=== PATIENT | male | born 1995 | race Caucasian/White ===

== ENCOUNTER 2019-05-09 17:43 | Inpatient (IN) ==
[2019-05-09] MEDS ORDERED: ONDANSETRON INJ 2 MG/ML 2 ML VIAL IV STA ×2 (18:05→19:57)
[2019-05-09] MEDS ORDERED: SODIUM CHLORIDE 0.9% 1000ML 1,000 ML IV SCH (18:15)
--- NOTE | 2019-05-09 19:30 | Emergency Department Note ---
Entered by Pablo Berger acting as a scribe for Reyes Hester MD History of Present Illness General Chief complaint: Referred by Doctor Stated complaint: WHITE BLOOD COUNT HIGH, NEEDS CT Time Seen by Provider: 05/09/19 17:54 Source: patient History of Present Illness Onset (ago): day(s) (few) Location: abdomen (lower), left and right Pain Consistency: + constant Maximum Pain Intensity: 5 Current Pain Intensity: 5 Associated symptoms: + denies other symptoms (sore throat, congestion), + fever/chills and + other (mild pain with urination, constipation); no cough The patient is a 23 y/o male who presents to the ED w/ CC of constant discomfort to his bilateral lower abdomen beginning a few days ago. The patient states he had his appendix out on the . He reports since the surgery, he felt sore. The patient notes he felt better on Monday and [place] He states he had a slight fever of 101.2 degrees F and chills after going to the movies. The patient reports he has had a low-grade fever since, and he has having trouble with constipation and pain. He notes he is still able to urinate but today he developed mild pain with urination. The patient states he still has abdominal discomfort that he rates a 5/10 in severity. He reports it does not increase with movement, and he has mild groin pain. The patient notes when moving his bowels, he has extreme pain in his rectum. He rates this discomfort an 8/10 in severity. The patient denies a sore throat, cough, and congestion. He notes he last had pain medication, Tylenol, a few hours ago. Review of EMR: The patient was evaluated in the ED on May 02 and diagnosed with appendicitis. He had an appendectomy performed by Dr. Roberto. The patient was evaluated by the surgeon today and was not feeling well. The surgeon was concerned because he should be feeling better. Lab work revealed: WBC of 16, hemoglobin was 14, creatinine of .95, bilirubin elevation of 4.2, and the remainder of LFTs were normal. He was sent to the ED for a CT of the abdomen. Home Medications Home Medications Medication Instructions Recorded Confirmed Type calcium carbonate [Tums] 200 mg PO UD 05/02/19 05/09/19 History dextroamphetamine-amphetamine 10 mg PO QAM 05/02/19 05/09/19 History gemfibrozil 600 mg PO BID 05/02/19 05/09/19 History acetaminophen [Tylenol Arthritis 650 mg PO TID PRN 05/09/19 05/09/19 History Pain] Allergies Allergy/AdvReac Type Severity Reaction Status Date / Time No Known Allergies Allergy Unverified 05/09/19 14:37 Past Med/Surg History Medical History Fatty liver disease, nonalcoholic Surgical History History of liver biopsy 2013 No significant past surgical history S/P appendectomy (05/02/19) Laparoscopic Appendectomy Dr. Roberto 05/02/19 Family History Father Diabetes Hypertension Grandfather (Paternal) Cancer Grandmother (Paternal) Heart disease Social History Preferred Language: Somali marital status: Single current occupational status: student Feels Safe at Home: Yes Smoking Status: Never smoker Hx Alcohol Use: No Hx Substance Use: No Review of Systems See HPI for pertinent positives & negatives. and A total of 10 systems reviewed and were otherwise negative Physical Exam Vital Signs Vital Signs - 24 hr 05/09/19 17:46 05/09/19 19:28 05/09/19 21:44 Temperature 37.3 C 37.2 C Temperature Source Oral Oral Sepsis Recent Fever Within 48 Hours No Sepsis New/Unexplained Change in Mental Status No Sepsis Action Taken by Nursing No Action Required Pulse Rate 104 H Pulse Rate [Finger] 94 H 84 Pulse Rhythm Regular Pulse Strength Normal Respiratory Rate 20 18 18 Respiratory Effort / Characteristics Non-Labored Spontaneous Respiratory Depth Normal Respiratory Pattern Regular Blood Pressure 102/68 Blood Pressure [Right Arm] 114/68 108/68 Blood Pressure Mean 79 Blood Pressure Mean [Right Arm] 83 81 Blood Pressure Position Sitting Pulse Oximetry 96 98 98 Oxygen Delivery Method Room Air Room Air Room Air GENERAL: Patient is in no acute distress. HEENT: No acute trauma, normocephalic atraumatic, mucous membranes moist, no nasal congestion, no scleral icterus. NECK: No stridor, no adenopathy, no meningismus, trachea is midline. LUNGS: Clear to auscultation bilaterally, no wheeze, no rhonchi, breath sounds equal. HEART: Without murmurs gallops or rubs, regular rate and rhythm. ABDOMEN: Soft, moderately tender in the lower quadrants - especially the right, bowel sounds positive, no hernias, no peritonitis. RECTAL: No evidence for perirectal abscess. EXTREMITIES: No cyanosis or edema, full range of motion of all the joints without pain or difficulty, no signs for acute trauma. NEUROLOGIC: Oriented x 3, no acute motor or sensory deficits, no focal weakness. SKIN: No rash, no jaundice, no diaphoresis. Course 1758: Past medical records reviewed. The patient was evaluated in room C10. A complete history and physical exam was performed. 2128: I discussed the patient's case with Dr. Bruner, [facility]. He recommends the patient receives a dose of Zosyn. He will evaluate the patient for further management and care. 2138: Upon reevaluation, the patient is resting comfortably. I discussed laboratory and radiographic results with the patient and his family. They verbalized agreement of the treatment plan. The patient will be evaluated for further management and care. Administered Medications Piperacillin Sod/Tazobactam Sod (Zosyn) 4.5 gm in 120 mls @ 240 mls/hr IV NOW ONE Stop: 05/09/19 22:04 Last Admin: 05/09/19 21:41 Dose: 240 mls/hr Documented by: [id number] Ioversol (Optiray 320 100ml) 94 ml IV ONCE PRN PRN Reason: Interaction Checking Stop: 05/13/19 20:51 Last Admin: 05/09/19 20:53 Dose: 94 ml Documented by: [id number] Discontinued Medications Sodium Chloride (Nss 1000ml) 1,000 mls @ 999 mls/hr IV .Q1H1M NIGEL Stop: 05/09/19 19:15 Last Infusion: 05/09/19 19:58 Dose: 0 mls/hr Documented by: [id number] Admin: 05/09/19 18:55 Dose: 999 mls/hr Documented by: [id number] Promethazine HCl 6.25 mg/ (Sodium Chloride) 50.25 mls @ 201 mls/hr IV NOW STA Stop: 05/09/19 20:11 Last Admin: 05/09/19 20:03 Dose: Not Given Documented by: [id number] Ondansetron HCl (Zofran) 4 mg IV NOW STA Stop: 05/09/19 18:06 Last Admin: 05/09/19 18:55 Dose: 4 mg Documented by: [id number] Ondansetron HCl (Zofran) 4 mg IV NOW STA Stop: 05/09/19 19:58 Last Admin: 05/09/19 20:03 Dose: 4 mg Documented by: [id number] Promethazine HCl (Phenergan) Confirm Administered Dose 6.25 mg IV .coJuvo-Surgient ONE Stop: 05/09/19 20:00 Last Admin: 05/09/19 20:02 Dose: 6.25 mg Documented by: [id number] Medical Decision Making Differential Diagnosis Differential diagnosis includes: bowel leak, diverticulitis, intraabdominal abscess, dehydration, constipation, wound infection, UTI, viral illness Medical Records Attestation: I reviewed the patient's medical records. Home Medications Current Medication List: was personally reviewed by me Laboratory Data Attestation: I reviewed the patient's lab results. Lab Results 05/09/19 05/09/19 Range/Units 18:05 19:25 Lipase 47 L (73-393) U/L Urine Color [place] Urine Appearance Clear (Clear) Urine pH 6.0 (4.5-7.5) Ur Specific [place] 1.016 (1.000-1.030) Urine Protein 2+ H (Negative) Urine Glucose (UA) Negative (Negative) Urine Ketones Negative (Negative) Urine Blood Negative (Negative) Urine Nitrite Negative (Negative) Urine Bilirubin Negative (Negative) Urine Urobilinogen Negative (Negative) Ur Leukocyte Esterase Negative (Negative) Urine WBC (Auto) 1-5 (0-5) /hpf Urine RBC (Auto) 0-4 (0-4) /hpf U Hyaline Cast (Auto) 0 (0-5) /lpf U Epithel Cells (Auto) 10-20 H (0-5) /lpf Urine Bacteria (Auto) Negative (Negative) Imaging Data Radiologist's Impression: Radiology results as stated below per my review and the radiologist's interpretation: CT abd pelvis oral and IV con CLINICAL HISTORY: Abdominal pain and elevated white count. History of prior appendectomy 1 week ago. COMPARISON STUDY: 05/02/2019 TECHNIQUE: The patient was scanned following administration of dilute oral contrast, and in a dynamic helical fashion during intravenous administration of 94 cc of Optiray 320. A dose lowering technique was utilized adhering to the principles of ALARA. CT DOSE: 387.98 mGy.cm FINDINGS: Lower chest: There is trace left pleural fluid. There is a 2 mm left lower lobe pulmonary nodule, a finding of doubtful clinical significance given the patient's age Liver: There is hepatic steatosis. The portal and hepatic veins appear patent. No focal hepatic masses are visualized. Gallbladder: Unremarkable. Spleen: The spleen is minimally enlarged measuring 13.6 cm. Pancreas: Unremarkable. Adrenal glands: Unremarkable. Kidneys: There is symmetric renal cortical enhancement. The kidneys are normal in size without hydronephrosis. Bowel: There are no transition zones to indicate bowel obstruction. There is a 42 mm prerectal fluid collection suspicious for an abscess. There is a markedly thick walled terminal ileum. Posterior terminal ileum is a 4 cm fluid collections suspicious for an abscess. There is a third right lower quadrant abdominal fluid collection measuring 7 cm suspicious for additional abscess. There are dilated ileal loops, proximal to the markedly thickened terminal ileum consistent with a partial small bowel obstruction. There is also infiltration of the perisigmoid fat, likely secondary to generalized lower abdominal peritoneal inflammation. Peritoneum: Addition to the above-mentioned pelvic abscesses. There is a small amount of mesenteric fluid. No free intraperitoneal air is visualized Vasculature: The abdominal aorta is normal in course and caliber. Adenopathy: None. Pelvic viscera: The bladder, and pelvic viscera are unremarkable. Skeletal structures: There is bilateral L5 spondylolysis. There is a grade 1 spondylolisthesis of L5 and S1. IMPRESSION: 1. Extensive right lower quadrant inflammatory process with extensive edema involving the cecum and distal ileum. This results in a partial small bowel obstruction. 2. Multiple right lower quadrant and pelvic fluid collections measuring 7 cm, 4 cm, and 4 cm respectively. The findings are felt to represent multiple pelvic abscesses. 3. Infiltration of the. Sigmoid fat, finding which is felt to be secondary to generalized pelvic peritoneal inflammation 4. Hepatic steatosis Electronically signed by: Glynn Cantu M.D. 05/09/2019 9:19 PM Blood Pressure Blood Pressure Findings: Normal blood pressure Blood Pressure Disposition: did not require urgent referral MDM Narrative The patient had laboratory work done as an outpatient today. The white count was elevated at 16,000. The bilirubin was slightly high at 4. He has had a higher bilirubin value with previous testing. There is no anemia. No kidney f ailure or issue with his kidney function. A lipase was done here in the ED, this was normal. Urinalysis was done, there was no infection. An abdominal and pelvis CT was performed. The patient does have evidence for 3 different fluid collections in the pelvis, likely abscesses. A partial small bowel obstruction was suspected. I spoke with the on-call general surgeon. IV antibiotic's were felt warranted. The patient is going to be hospitalized. He may require a general surgical washout, he may require percutaneous intervention. This will be decided by the surgical group after talking with the patient and his family. Emergent transfer to a different facility was not felt necessary as per surgery. The patient was given IV Zosyn as antibiotic coverage. He received IV Zofran for nausea, a second dose of Zofran and a dose of Phenergan was given IV for persistent nausea. He was given IV saline for hydration. I spoke to the patient, I spoke with his family. Case management has been involved. Impression & Plan Intra-abdominal abscess, Leukocytosis, S/P appendectomy Discharge Plan Visit Data Chief Complaint: Referred by Doctor Stated Complaint: WHITE BLOOD COUNT HIGH, NEEDS CT ED Provider: Reyes Hester Discharge Problem: Intra-abdominal abscess, Leukocytosis, S/P appendectomy Patient Disposition: Being Evaluated by Surgeon Forms Stand Alone Forms: [facility] Prescriptions Prescriptions: No Action gemfibrozil 600 mg tablet 600 mg PO BID RF: 0 dextroamphetamine-amphetamine 10 mg capsule,extended release 24hr 10 mg PO QAM RF: 0 calcium carbonate [Tums] 200 mg calcium (500 mg) Tablet,Chewable 200 mg PO UD RF: 0 acetaminophen [Tylenol Arthritis Pain] 650 mg Tablet Extended Release 650 mg PO TID PRN (Reason: Pain) RF: 0 Referrals Referrals: Jess Hernandez [Primary Care Provider] - Discharge Problem: Leukocytosis Qualifiers: Leukocytosis type: unspecified Qualified Code(s): D72.829 - Elevated white blood cell count, unspecified The scribe's documentation has been prepared under my direction and personally reviewed by me in its entirety. I confirm that the note above accurately reflects all work, treatment, procedures, and medical decision making performed by me.
[2019-05-09 19:44] LABS: Appearance Urine Clear (Clear); Bacteria Urine Automated Negative (Negative); Bilirubin Urine Negative (Negative); Blood Urine Negative (Negative); Cast Urine Automated 0 /lpf (0-5); Color Urine Orange; Glucose Urine UA Negative (Negative); Ketones Urine Negative (Negative); Leukocyte Esterase Urine Negative (Negative); Nitrite Urine Negative (Negative); Protein Urine 2+ (Negative); RBC Urine Automated 0-4 /hpf (0-4); Specific Gravity Urine 1.016 (1.000-1.030); Urobilinogen Urine Negative (Negative)
[2019-05-09] MEDS ORDERED: PROMETHAZINE HCL 6.25 MG in SODIUM CHLORIDE 0.9% 50 ML IV STA (19:57)
[2019-05-09] MEDS ORDERED: PROMETHAZINE 6.25 MG/50.25 ML NSS IV ONE (19:59)
[2019-05-09] MEDS ORDERED: IOVERSOL 100ml IV PRN (20:52)
--- NOTE | 2019-05-09 21:21 | CT Scan Report ---
CT abd pelvis oral and IV con CLINICAL HISTORY: Abdominal pain and elevated white count. History of prior appendectomy 1 week ago. COMPARISON STUDY: 05/02/2019 TECHNIQUE: The patient was scanned following administration of dilute oral contrast, and in a dynamic helical fashion during intravenous administration of 94 cc of Optiray 320. A dose lowering techniqu e was utilized adhering to the principles of ALARA. CT DOSE: 387.98 mGy.cm FINDINGS: Lower chest: There is trace left pleural fluid. There is a 2 mm left lower lobe pulmonary nodule, a f inding of doubtful clinical significance given the patient's age Liver: There is hepatic steatosis. The portal and hepatic veins appear patent. No focal hepatic huber s are visualized. Gallbladder: Unremarkable. Spleen: The spleen is minimally enlarged measuring 13.6 cm. Pancreas: Unremarkable. Adrenal glands: Unremarkable. Kidneys: There is symmetric renal cortical enhancement. The kidneys are normal in size without hydron ephrosis. Bowel: There are no transition zones to indicate bowel obstruction. There is a 42 mm prerectal fluid collection suspicious for an abscess. There is a markedly thick walled terminal ileum. Posterior term inal ileum is a 4 cm fluid collections suspicious for an abscess. There is a third right lower quadra nt abdominal fluid collection measuring 7 cm suspicious for additional abscess. There are dilated ile al loops, proximal to the markedly thickened terminal ileum consistent with a partial small bowel obs truction. There is also infiltration of the perisigmoid fat, likely secondary to generalized lower ab dominal peritoneal inflammation. Peritoneum: Addition to the above-mentioned pelvic abscesses. There is a small amount of mesenteric f luid. No free intraperitoneal air is visualized Vasculature: The abdominal aorta is normal in course and caliber. Adenopathy: None. Pelvic viscera: The bladder, and pelvic viscera are unremarkable. Skeletal structures: There is bilateral L5 spondylolysis. There is a grade 1 spondylolisthesis of L5 and S1. IMPRESSION: 1. Extensive right lower quadrant inflammatory process with extensive edema involving the cecum and d istal ileum. This results in a partial small bowel obstruction. 2. Multiple right lower quadrant and pelvic fluid collections measuring 7 cm, 4 cm, and 4 cm respecti vely. The findings are felt to represent multiple pelvic abscesses. 3. Infiltration of the. Sigmoid fat, finding which is felt to be secondary to generalized pelvic analilia toneal inflammation 4. Hepatic steatosis Electronically signed by: Glynn Cantu M.D. 05/09/2019 9:19 PM
[2019-05-09] MEDS ORDERED: PIPERACILLIN/TAZOBACTAM 4.5 GM/120 ML BAG IV ONE (21:35)
[2019-05-09] MEDS ORDERED: PIPERACILL/TAZOBAC CONSULT ACTIVE PRN ×2 (21:35→23:48)
--- NOTE | 2019-05-09 22:54 | History & Physical Report ---
Date of Service May 09, 2019 Assessment & Plan (1) Intra-abdominal abscess: This patient is status post uncomplicated laparoscopic appendectomy 1 week ago. He has developed abdominal pain with elevated white count and low-grade fever and a CT scan consistent with abscess formation. Going to admit him to the hospital and place him on antibiotics. He will be kept n.p.o. Further decisions about management will be made in the morning. History of Present Illness Chief Complaint: Right lower quadrant and pelvic pain Primary Care Provider: Jess Hernandez This is a 23-year-old male who underwent an uncomplicated laparoscopic appendectomy on 05/02/19. Postoperative day #3 he developed some mild discomfort in the pelvis area. This was exacerbated during bowel movements. That night he then developed fever with a maximum of 100.2. He then had some chills. He went to be seen for follow-up today and a CT scan was recommended. He was found to have an inflammatory process with phlegmon in the right lower quadrant and evidence of 3 collections most likely consistent with abscess. The discomfort has increased slightly in intensity. He has no dysuria or hematuria. He has had no nausea or vomiting. He denies diarrhea. He has not had melena or hematochezia.His CBC was drawn as an outpatient and his white count was found to be 16.13 Allergies Allergy/AdvReac Type Severity Reaction Status Date / Time No Known Allergies Allergy Unverified 05/09/19 14:37 Home Medications Home Medications Medication Instructions Recorded Confirmed Type calcium carbonate [Tums] 200 mg PO UD 05/02/19 05/09/19 History dextroamphetamine-amphetamine 10 mg PO QAM 05/02/19 05/09/19 History gemfibrozil 600 mg PO BID 05/02/19 05/09/19 History acetaminophen [Tylenol Arthritis 650 mg PO TID PRN 05/09/19 05/09/19 History Pain] Past Med/Surg History Medical History Fatty liver disease, nonalcoholic Surgical History History of liver biopsy 2014 S/P appendectomy (05/02/19) Laparoscopic Appendectomy Dr. Roberto 05/02/19 Family History Father Diabetes Hypertension Grandfather (Paternal) Cancer Grandmother (Paternal) Heart disease Social History Preferred Language: Mohawk marital status: Single current occupational status: student Feels Safe at Home: Yes Smoking Status: Never smoker Hx Alcohol Use: No Hx Substance Use: No Review of Systems Review of Systems: All systems reviewed & are unremarkable except as noted in HPI & below Physical Exam Constitutional: no acute distress Neck: trachea midline Respiratory: normal respiratory effort, lungs clear to auscultation Cardiovascular: Rate/Rhythm: regular rate and regular rhythm Gastrointestinal (Abdomen): Inspection/Auscultation: + abdomen distended (Mild) Percussion/Palpation: + abdomen tender (In the right lower quadrant extending down towards the suprapubic area), abdomen soft and + abdominal mass (There is no discrete mass but there is fullness in the right lower quadrant) Skin: no rashes, warm and dry Lymphatic: no cervical lymphadenopathy and no subclavicular lymphadenopathy Results & Data Vital Signs (Past 12 Hours) Vital Signs Temp Pulse Pulse Resp BP BP Pulse Ox 05/09/19 21:44 37.2 C 84 18 108/68 98 05/09/19 19:28 94 H 18 114/68 98 05/09/19 17:46 37.3 C 104 H 20 102/68 96 Laboratory Results 05/09/19 05/09/19 Range/Units 19:25 18:05 Lipase 47 L (73-393) U/L Urine Color [place] Urine Appearance Clear (Clear) Urine pH 6.0 (4.5-7.5) Ur Specific [place] 1.016 (1.000-1.030) Urine Protein 2+ H (Negative) Urine Glucose (UA) Negative (Negative) Urine Ketones Negative (Negative) Urine Blood Negative (Negative) Urine Nitrite Negative (Negative) Urine Bilirubin Negative (Negative) Urine Urobilinogen Negative (Negative) Ur Leukocyte Esterase Negative (Negative) Urine WBC (Auto) 1-5 (0-5) /hpf Urine RBC (Auto) 0-4 (0-4) /hpf U Hyaline Cast (Auto) 0 (0-5) /lpf U Epithel Cells (Auto) 10-20 H (0-5) /lpf Urine Bacteria (Auto) Negative (Negative) Diagnostic Findings CT abd pelvis oral and IV con CLINICAL HISTORY: Abdominal pain and elevated white count. History of prior appendectomy 1 week ago. COMPARISON STUDY: 05/02/2019 TECHNIQUE: The patient was scanned following administration of dilute oral contrast, and in a dynamic helical fashion during intravenous administration of 94 cc of Optiray 320. A dose lowering technique was utilized adhering to the principles of ALARA. CT DOSE: 387.98 mGy.cm FINDINGS: Lower chest: There is trace left pleural fluid. There is a 2 mm left lower lobe pulmonary nodule, a finding of doubtful clinical significance given the patient's age Liver: There is hepatic steatosis. The portal and hepatic veins appear patent. No focal hepatic masses are visualized. Gallbladder: Unremarkable. Spleen: The spleen is minimally enlarged measuring 13.6 cm. Pancreas: Unremarkable. Adrenal glands: Unremarkable. Kidneys: There is symmetric renal cortical enhancement. The kidneys are normal in size without hydronephrosis. Bowel: There are no transition zones to indicate bowel obstruction. There is a 42 mm prerectal fluid collection suspicious for an abscess. There is a markedly thick walled terminal ileum. Posterior terminal ileum is a 4 cm fluid collections suspicious for an abscess. There is a third right lower quadrant abdominal fluid collection measuring 7 cm suspicious for additional abscess. There are dilated ileal loops, proximal to the markedly thickened terminal ileum consistent with a partial small bowel obstruction. There is also infiltration of the perisigmoid fat, likely secondary to generalized lower abdominal peritoneal inflammation. Peritoneum: Addition to the above-mentioned pelvic abscesses. There is a small amount of mesenteric fluid. No free intraperitoneal air is visualized Vasculature: The abdominal aorta is normal in course and caliber. Adenopathy: None. Pelvic viscera: The bladder, and pelvic viscera are unremarkable. Skeletal structures: There is bilateral L5 spondylolysis. There is a grade 1 spondylolisthesis of L5 and S1. IMPRESSION: 1. Extensive right lower quadrant inflammatory process with extensive edema involving the cecum and distal ileum. This results in a partial small bowel obstruction. 2. Multiple right lower quadrant and pelvic fluid collections measuring 7 cm, 4 cm, and 4 cm respectively. The findings are felt to represent multiple pelvic abscesses. 3. Infiltration of the. Sigmoid fat, finding which is felt to be secondary to generalized pelvic peritoneal inflammation 4. Hepatic steatosis
[2019-05-09] MEDS ORDERED: ONDANSETRON INJ 2 MG/ML 2 ML VIAL IV PRN (23:48)
[2019-05-10] MEDS ORDERED: MoRPHine SULFATE 2 MG/ML CARP ONE (00:16)
[2019-05-10] MEDS: SODIUM CHLORIDE 0.9% 1000ML 1,000 ML IV SCH ×3 (00:20→19:38)
[2019-05-10] MEDS: PIPERACILLIN/TAZOBACTAM 3.375 GM in DEXTROSE 5% 100 ML IV SCH ×3 (01:52→18:03)
[2019-05-10] MEDS ORDERED: INFLUENZA ADMINISTRATION CHARGE ONE (04:30)
[2019-05-10] MEDS ORDERED: INFLUENZA VIRUS QUAD VACCINE 0.5 ML SYR IM ONE (04:30)
--- NOTE | 2019-05-10 13:16 | Surgery Progress Note ---
Date of Service May 10, 2019 Assessment & Plan (1) Intra-abdominal abscess: 23-year-old male 1 week status post uncomplicated laparoscopic appendectomy now with intra-abdominal abscess. I discussed percutaneous drainage with our radiologist, and they unsure if they would be able to drain the abscesses. I also discussed options with the family to include laparoscopic washout and drainage, versus transfer to a tertiary center with more interventional radiology capabilities. We discussed the risks and benefits of each of these options. At this point the family elects for transfer to tertiary center. I discussed the care with Dr. Lina Llanos at [facility] and she is agreed to accept patient in transfer. Transfer to [facility], attending physician Dr. Lina Llanos for assessment and evaluation and percutaneous drainage of intra-abdominal abscesses Continue antibiotics Continue n.p.o., if patient is not going to be transferred tonight then he may have clear liquids I had a long discussion with the patient and his family. We discussed the diagnosis, treatment options, and plan of care. All questions were answered, and the family and the patient expressed understanding and agree with the plan of care as stated. Present on Admission?: Yes (2) S/P appendectomy: (3) Leukocytosis: Subjective 23-year-old male status post uncomplicated laparoscopic appendectomy on 02 May, admitted for intra-abdominal abscess. He was seen in the clinic yesterday and was complaining of fevers and chills along with some vague abdominal symptoms. CBC was performed and showed an elevated white blood cell count, and the patient was referred to the emergency department for further work-up and imaging. The CT scan revealed several fluid collections in the abdo men that were concerning for intra-abdominal abscesses. He was admitted to the surgical service by the on-call surgeon Dr. Bruner overnight and placed on antibiotics and made n.p.o. Overall he has been stable with minimal complaints. Physical Exam Constitutional: WD/WN, vitals as above Eyes: PERRL, conjunctivae normal, anicteric sclerae ENMT: external ear and nose normal, oropharynx normal Neck: trachea midline, no thyromegaly Respiratory: normal respiratory effort, lungs clear to auscultation Cardiovascular: RRR, no murmur, no edema Gastrointestinal (Abdomen): Percussion/Palpation: + abdomen tender (Moderate tenderness to palpation, worse in the right lower quadrant) and abdomen soft; no guarding and abdomen not rigid Musculoskeletal: no cyanosis or clubbing, extremities motor strength 5/5 Skin: no rashes, warm and dry Neurologic: PERRL, EOMI, accommodation nl, no face palsy, no dysarthria Psychiatric: A+Ox3, euthymic affect Lymphatic: no cervical or axillary lymphadenopathy Results & Data Vital Signs (Past 12 Hours) Vital Signs Temp Pulse Resp BP Pulse Ox 05/10/19 07:59 37.5 C 96 H 18 98/59 L 95 Laboratory Results Laboratory Results - last 24 hr 05/09/19 05/09/19 18:05 19:25 Lipase 47 L Urine Color [place] Urine Appearance Clear Urine pH 6.0 Ur Specific [place] 1.016 Urine Protein 2+ H Urine Glucose (UA) Negative Urine Ketones Negative Urine Blood Negative Urine Nitrite Negative Urine Bilirubin Negative Urine Urobilinogen Negative Ur Leukocyte Esterase Negative Urine WBC (Auto) 1-5 Urine RBC (Auto) 0-4 U Hyaline Cast (Auto) 0 U Epithel Cells (Auto) 10-20 H Urine Bacteria (Auto) Negative Diagnostic Findings CT abd pelvis oral and IV con CLINICAL HISTORY: Abdominal pain and elevated white count. History of prior appendectomy 1 week ago. COMPARISON STUDY: 05/02/2019 TECHNIQUE: The patient was scanned following administration of dilute oral contrast, and in a dynamic helical fashion during intravenous administration of 94 cc of Optiray 320. A dose lowering technique was utilized adhering to the principles of ALARA. CT DOSE: 387.98 mGy.cm FINDINGS: Lower chest: There is trace left pleural fluid. There is a 2 mm left lower lobe pulmonary nodule, a finding of doubtful clinical significance given the patient's age Liver: There is hepatic steatosis. The portal and hepatic veins appear patent. No focal hepatic masses are visualized. Gallbladder: Unremarkable. Spleen: The spleen is minimally enlarged measuring 13.6 cm. Pancreas: Unremarkable. Adrenal glands: Unremarkable. Kidneys: There is symmetric renal cortical enhancement. The kidneys are normal in size without hydronephrosis. Bowel: There are no transition zones to indicate bowel obstruction. There is a 42 mm prerectal fluid collection suspicious for an abscess. There is a markedly thick walled terminal ileum. Posterior terminal ileum is a 4 cm fluid collec tions suspicious for an abscess. There is a third right lower quadrant abdominal fluid collection measuring 7 cm suspicious for additional abscess. There are dilated ileal loops, proximal to the markedly thickened terminal ileum consistent with a partial small bowel obstruction. There is also infiltration of the perisigmoid fat, likely secondary to generalized lower abdominal peritoneal inflammation. Peritoneum: Addition to the above-mentioned pelvic abscesses. There is a small amount of mesenteric fluid. No free intraperitoneal air is visualized Vasculature: The abdominal aorta is normal in course and caliber. Adenopathy: None. Pelvic viscera: The bladder, and pelvic viscera are unremarkable. Skeletal structures: There is bilateral L5 spondylolysis. There is a grade 1 spondylolisthesis of L5 and S1. IMPRESSION: 1. Extensive right lower quadrant inflammatory process with extensive edema involving the cecum and distal ileum. This results in a partial small bowel obstruction. 2. Multiple right lower quadrant and pelvic fluid collections measuring 7 cm, 4 cm, and 4 cm respectively. The findings are felt to represent multiple pelvic abscesses. 3. Infiltration of the. Sigmoid fat, finding which is felt to be secondary to generalized pelvic peritoneal inflammation 4. Hepatic steatosis PG Care Time/CCT Total # of Minutes Spent Total Time Spent with Patient: Total time spent is greater than 50% in coordination of care (as documented) at patient's floor/unit and/or counseling patient: (1) Leukocytosis Leukocytosis type: unspecified Qualified Code(s): D72.829 - Elevated white blood cell count, unspecified
--- NOTE | 2019-05-10 13:23 | Discharge Summary ---
Date of Service May 10, 2019 Admission HPI Per Admitting Provider This is a 23-year-old male who underwent an uncomplicated laparoscopic appendectomy on 05/02/19. Postoperative day #3 he developed some mild discomfort in the pelvis area. This was exacerbated during bowel movements. That night he then developed fever with a maximum of 100.2. He then had some chills. He went to be seen for follow-up today and a CT scan was recommended. He was found to have an inflammatory process with phlegmon in the right lower quadrant and evidence of 3 collections most likely consistent with abscess. The discomfort has increased slightly in intensity. He has no dysuria or hematuria. He has had no nausea or vomiting. He denies diarrhea. He has not had melena or hematochezia.His CBC was drawn as an outpatient and his white count was found to be 16.13 Principal Diagnosis intra-abdominal abscesses history of laparoscopic appendectomy Discharge Exam Constitutional WD/WN, vitals as above no acute distress Eyes PERRL, conjunctivae normal, anicteric sclerae ENMT external ear and nose normal, oropharynx normal Neck trachea midline, no thyromegaly trachea midline Respiratory normal respiratory effort, lungs clear to auscultation Cardiovascular RRR, no murmur, no edema Rate/Rhythm: regular rate and regular rhythm Gastrointestinal (Abdomen) Inspection/Auscultation: + abdomen distended (Mild) Percussion/Palpation: + abdomen tender (Moderate tenderness to palpation, worse in the right lower quadrant), abdomen soft and + abdominal mass (There is no discrete mass but there is fullness in the right lower quadrant); no guarding and abdomen not rigid Musculoskeletal no cyanosis or clubbing, extremities motor strength 5/5 Skin no rashes, warm and dry Neurologic PERRL, EOMI, accommodation nl, no face palsy, no dysarthria Psychiatric A+Ox3, euthymic affect Lymphatic no cervical or axillary lymphadenopathy no cervical lymphadenopathy and no subclavicular lymphadenopathy Discharge Data Allergies Allergy/AdvReac Type Severity Reaction Status Date / Time No Known Allergies Allergy Unverified 05/09/19 14:37 Consultations 05/09/19 21:35 ED Decision to Admit Stat Ordered Studies 05/09/19 18:05 CT abd pelvis oral and IV con Stat Hospital Course (1) Intra-abdominal abscess: This is a 23y M who is s/p a laparoscopic appendectomy on 05/02/19 who presented to the [facility] ED after evaluation in clinic with ongoing abdominal pain and subjective fevers and chills. Workup revealed an elevated WBC to [address] showed 3 intra-abdominal abscesses the largest being 7cm. Patient was admitted under surgery and was made NPO with IVF and started on IV zosyn. After discussion with the patient, surgical staff, and radiology the patient and family preferred transfer to a tertiary center with Interventional Radiology capabilities for drainage of the abscesses. They elected to go to [facility] and Dr. Lina Llanos accepted the patient. He was instructed to follow up in clinic once he is discharged from [facility] for ongoing follow up of his care. (2) S/P appendectomy: (3) Leukocytosis: Total Time Total Time Spent Total Time Spent (In Minutes): 15 Discharge Plan Discharge Items Patient Disposition: Transfer Acute Care Hospital Reason For Visit: INTRAABDOMINAL ABSCESS Follow-up/Referrals: Jess Hernandez [Primary Care Provider] - Stand-Alone Forms: [facility] Medications and DC Order Prescriptions: Discontinued gemfibrozil 600 mg tablet 600 mg PO BID RF: 0 dextroamphetamine-amphetamine 10 mg capsule,extended release 24hr 10 mg PO QAM RF: 0 calcium carbonate [Tums] 200 mg calcium (500 mg) Tablet,Chewable 200 mg PO UD RF: 0 acetaminophen [Tylenol Arthritis Pain] 650 mg Tablet Extended Release 650 mg PO TID PRN (Reason: Pain) RF: 0 Admission Data Admit Date/Time: 05/09/19 22:48 Attending Provider: Ifeanyi Roberto Admit Provider: Maicol Bruner Primary Care Provider: Jess Hernandez Other Providers: Maicol Bruner
[2019-05-10] MEDS: MoRPHine SULFATE 2 MG/ML CARP IV PRN (18:00)
[2019-05-11] MEDS: PIPERACILLIN/TAZOBACTAM 3.375 GM in DEXTROSE 5% 100 ML IV SCH ×3 (02:17→18:25)
[2019-05-11] MEDS: SODIUM CHLORIDE 0.9% 1000ML 1,000 ML IV SCH ×3 (02:19→21:45)
[2019-05-11] MEDS: MoRPHine SULFATE 2 MG/ML CARP IV PRN ×3 (05:58→20:54)
[2019-05-11 06:31] LABS: Creatinine Clr Calc Pharmacy 137.7 ml/min; Est GFR (African American) 148.8; Est GFR (Non-African American) 128.4
[2019-05-11 08:07] LABS: Basophils # (auto) 0.02 K/uL (0-0.2); Basophils % (auto) 0.2 %; Eosinophils % (auto) 2.2 %; Hematocrit (blood only) 29.8 % (42-52); Immature Granulocytes # (auto) 0.03 K/uL (0.00-0.02); Immature Granulocytes % (auto) 0.3 %; Lymphocytes # (auto) 1.02 K/uL (1.2-3.4); Mean Corpuscular Hemoglobin 31.3 pg (25-34); Mean Corpuscular Hgb Conc 36.9 g/dL (32-36); Mean Corpuscular Volume 84.9 fL (80-100); Mean Platelet Volume 10.2 fL (7.4-10.4); Monocytes # (auto) 0.89 K/uL (0.11-0.59); Monocytes % (auto) 9.6 %; Neutrophils # (auto) 7.14 K/uL (1.4-6.5); Neutrophils % (auto) 76.7 %; Platelet Count 179 K/uL (130-400); RDW Coefficient of Variation 12.3 % (11.5-14.5); RDW Standard Deviation 37.8 fL (36.4-46.3); Red Blood Count 3.51 M/uL (4.7-6.1)
[2019-05-11 08:20] LABS: BUN Creatinine Ratio 14.3 (10-20); Calcium 8.7 mg/dl (8.5-10.1); Creatinine Clr Calc Pharmacy 127.9 ml/min; Est GFR (African American) 144.4; Est GFR (Non-African American) 124.6; Potassium 3.7 mmol/L (3.5-5.1)
--- NOTE | 2019-05-11 10:26 | Surgery Progress Note ---
Date of Service May 11, 2019 Assessment & Plan (1) Intra-abdominal abscess: 05/11/19 Patient feeling better than yesterday WBC down to 9.3 from 16 yesterday Continue IV Zosyn Awaiting transfer to [place] for IR drainage of intra-abdominal abscesses Spoke to the transfer center this AM who states that they are still waiting for a bed to open. They are not optimistic that a bed will be available for today. We relayed this information to the patient and family who expressed understanding As patient may not be transferred today we will allow him to eat a regular diet and make NPO at midnight Patient seen and examined with Dr. Simmons Subjective Patient states he feels better than yesterday. Tolerated clear liquids in the evening. Physical Exam Physical Exam: awake/alert Respiratory: normal respiratory effort Results & Data Vital Signs (Past 12 Hours) Vital Signs Temp Pulse Resp BP Pulse Ox 05/11/19 07:58 36.9 C 84 18 110/69 96 05/10/19 23:18 37.5 C 101 H 20 113/72 96 PG Care Time/CCT Total # of Minutes Spent Total Time Spent with Patient: Total time spent is greater than 50% in coordina tion of care (as documented) at patient's floor/unit and/or counseling patient:
[2019-05-12] MEDS: PIPERACILLIN/TAZOBACTAM 3.375 GM in DEXTROSE 5% 100 ML IV SCH ×2 (02:56→10:00)
[2019-05-12] MEDS: MoRPHine SULFATE 2 MG/ML CARP IV PRN ×3 (04:34→14:45)
[2019-05-12] MEDS: SODIUM CHLORIDE 0.9% 1000ML 1,000 ML IV SCH (05:36)
[2019-05-12 05:54] LABS: Basophils # (auto) 0.03 K/uL (0-0.2); Basophils % (auto) 0.3 %; Eosinophils # (auto) 0.22 K/uL (0-0.5); Eosinophils % (auto) 2.1 %; Hematocrit (blood only) 31.3 % (42-52); Hemoglobin 11.1 g/dL (14.0-18.0); Immature Granulocytes # (auto) 0.04 K/uL (0.00-0.02); Immature Granulocytes % (auto) 0.4 %; Lymphocytes # (auto) 0.97 K/uL (1.2-3.4); Lymphocytes % (auto) 9.4 %; Mean Corpuscular Hemoglobin 29.8 pg (25-34); Mean Corpuscular Hgb Conc 35.5 g/dL (32-36); Mean Corpuscular Volume 84.1 fL (80-100); Mean Platelet Volume 10.3 fL (7.4-10.4); Monocytes # (auto) 0.83 K/uL (0.11-0.59); Monocytes % (auto) 8.1 %; Neutrophils # (auto) 8.19 K/uL (1.4-6.5); Neutrophils % (auto) 79.7 %; Platelet Count 206 K/uL (130-400); RDW Coefficient of Variation 12.1 % (11.5-14.5); RDW Standard Deviation 37.2 fL (36.4-46.3); Red Blood Count 3.72 M/uL (4.7-6.1); White Blood Count 10.28 K/uL (4.8-10.8)
[2019-05-12 06:30] LABS: BUN Creatinine Ratio 7.2 (10-20); Blood Urea Nitrogen 5 mg/dl (7-18); Calcium 8.4 mg/dl (8.5-10.1); Carbon Dioxide 26 mmol/L (21-32); Chloride 104 mmol/L (98-107); Est GFR (African American) > 150.0; Est GFR (Non-African American) 131.9; Glucose 105 mg/dl (70-99); Potassium 3.2 mmol/L (3.5-5.1); Sodium 138 mmol/L (136-145)
[2019-05-12 07:18] VITALS: PULSE 96; TEMP 100.2; O2SAT 95
[2019-05-12] MEDS ORDERED: LACTATED RINGER'S 1,000 ML IV SCH (08:30)
[2019-05-12] MEDS ORDERED: POTASSIUM CHLORIDE 20 MEQ TABCR PO SCH (09:00)
--- NOTE | 2019-05-12 09:09 | Surgery Progress Note ---
Date of Service May 12, 2019 Assessment & Plan (1) Intra-abdominal abscess: WBC 10, T 37.9 no acute abdominal findings [place] [facility] [place] seen with Dr. Simmons would prefer to have IR drainage than to take back to OR for drain placement Subjective felt warm during the night, tolerating small meals, had 2 mg morphine 0400 this AM Physical Exam Gastrointestinal (Abdomen): Inspection/Auscultation: + abdominal surgical incision (clean, dry); abdomen not distended Percussion/Palpation: abdomen soft Results & Data Vital Signs (Past 12 Hours) Vital Signs Temp Pulse Resp BP Pulse Ox 05/12/19 07:16 37.9 C H 96 H 18 112/69 95 05/11/19 23:10 37.5 C 104 H 18 111/68 94 PG Care Time/CCT Total # of Minutes Spent Total Time Spent with Patient: Total time spent is greater than 50% in coordination of care (as documented) at patient's floor/unit and/or counseling patient:
[2019-05-12 15:06] VITALS: BP 118/69
--- NOTE | 2019-05-15 09:16 | Coding Query ---
CODING QUERY To promote full compliance with coding requirements relating to patient care, provider participation is requested in all cases of clinical coder uncertainty. Please assist us with the question(s) below: Coding Question: Intra-abdominal abscess s/p a laparoscopic appendectomy was documented throughout the chart, please clarify below to the best of your knowledge if the abscess was a post-op complication. Thank you so much for your help! Have a great day! (X) Post-op abdominal abscess, a complication of surgery ( ) Intra-abdominal abscess, not a complication of surgery ( ) Other, explain Thank you! Mere Barakat Principal Diagnosis: "that condition established after study, to be chiefly responsible for occasioning the admission of the patient to the hospital for care." Co-Existing Principal Diagnosis: "when two or more diagnoses equally meet the criteria for principal diagnosis as determined by the circumstances of admission, diagnostic work up, and/or therapy provided, and the Alphabetic Index, Tabular List, or another coding guideline does not provide sequencing direction, any one of the diagnoses may be sequenced first." "When the physician has documented what appears to be a current diagnosis in the body of the record, but has not included the diagnosis in the final diagnostic statement, the physician should be asked whether the diagnosis should be added." (Source Coding Clinic 2 QTR90. p3-4) KAVON
== END 2019-05-12 15:50 | disposition short-term general hospital (02) | DRG 862 ==
LOC: ED 17:43 → 3W 23:01

== ENCOUNTER 2019-07-26 21:43 | Inpatient (IN) ==
[2019-07-26] MEDS ORDERED: KETOROLAC TROMETHAMINE 15 MG/ML VIAL IV STA (22:02)
[2019-07-26] MEDS ORDERED: ACETAMINOPHEN 500 MG TAB PO STA (22:02)
--- NOTE | 2019-07-26 22:07 | Emergency Department Note ---
History of Present Illness General Chief complaint: Illness Stated complaint: FEVER Time Seen by Provider: 07/26/19 21:50 History of Present Illness This 23-year-old presents to the ER complaining of fever, cough, body aches and pains for the past day Location: Generalized Quality: Achy Severity: Moderate Duration: Today Timing: Today Context: Patient was concerned and came in Modifying factors: better with ibuprofen; worse with activity Patient was in the ER twice this week for gallbladder problems. He states abdominal pain has subsided. He developed a fever this morning and has gotten progressively worse. He did not get his flu vaccine. He is not traveled outside the country. Patient denies chest pain, dyspnea, abdominal pain, vomiting, diarrhea, urinary symptoms. Home Medications Home Medications Medication Instructions Recorded Confirmed Type dextroamphetamine-amphetamine 20 20 mg PO DAILY 06/07/19 07/26/19 History mg tablet gemfibrozil 600 mg tablet 600 mg PO BID 06/07/19 07/26/19 History calcium carbonate [Tums] 200 mg PO DIRECTED PRN 07/22/19 07/26/19 History ibuprofen 400 mg PO Q6H PRN 07/22/19 07/26/19 History famotidine [Pepcid] 40 mg PO HS #30 tab 07/23/19 07/26/19 Rx Allergies Allergy/AdvReac Type Severity Reaction Status Date / Time No Known Allergies Allergy Verified 07/26/19 22:54 Past Med/Surg History Medical History Fatty liver disease, nonalcoholic Surgical History History of liver biopsy 2014 S/P appendectomy (05/02/19) Laparoscopic Appendectomy Dr. 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: No Beliefs That Will Affect Care: None marital status: Single Current Living Situation: Family and Other Current Living Situation Comment: roomates in an apt current occupational status: student Feels Safe at Home: Yes Smoking Status: Never smoker Hx Alcohol Use: No Hx Substance Use: Yes substance use type: former substance user and marijuana Review of Systems A total of 10 systems reviewed and were otherwise negative Physical Exam Vital Signs Vital Signs - 24 hr 07/26/19 21:44 Temperature 37.2 C Temperature Source Oral Pulse Rate 106 H Respiratory Rate 18 Blood Pressure 115/70 Blood Pressure Mean 85 Blood Pressure Position Sitting Pulse Oximetry 95 Oxygen Delivery Method Room Air Sepsis Recent Fever Within 48 Hours No Sepsis Action Taken by Nursing No Action Required VITALS: Vitals are noted on the nurse's note and reviewed by myself. Vital signs mildly tachycardic. GENERAL: Pleasant male mildly ill-appearing, in no acute distress, nondiaphoretic, well-developed well-nourished. SKIN: The skin was without rashes, erythema, edema, or bruising. There is no tenting of the skin. Capillary reflex less than 2 seconds. HEAD: Normocephalic atraumatic. EARS: External auditory canals clear, tympanic membranes pearly lomax without erythema or effusion bilaterally. EYES: Pupils equal round and reactive to light and accommodation. Conjunctivae without injection, sclerae with icterus. Extraocular movements intact. NOSE: Patent, turbinates without inflammation or discharge. No sinus tenderness. MOUTH: Mucous membranes mildly dry. Pharynx without erythema or exudate. Uvula midline. Airway patent. Tongue does not deviate. NECK: Supple without nuchal rigidity. No lymphadenopathy. No thyromegaly. Cervical spine is nontender. No JVD. HEART: Regular rate and rhythm without murmurs gallops or rubs. LUNGS: Clear to auscultation bilaterally without wheezes, rales or rhonchi. No retractions or accessory muscle use. ABDOMEN: Positive bowel sounds x 4. Normal tympanic percussion. Soft, nontender, without masses or organomegaly. Billy sign negative. No guarding or rebound tenderness. No CVA tenderness MUSCULOSKELETAL: No muscle atrophy, erythema, or edema noted. NEURO: Patient was alert and oriented to person place and time. Normal sensation to light and sharp touch. No focal neurological deficits. Course Administered Medications Discontinued Medications Acetaminophen (Tylenol) 1,000 mg PO ONE STA Stop: 07/26/19 22:03 Last Admin: 07/26/19 22:18 Dose: 1,000 mg Documented by: [id number] Sodium Chloride (Nss 1000ml) 1,000 mls @ 999 mls/hr IV .Q1H1M NIGEL Stop: 07/26/19 23:15 Last Infusion: 07/26/19 23:33 Dose: 0 mls/hr Documented by: [id number] Admin: 07/26/19 22:18 Dose: 999 mls/hr Documented by: [id number] Ketorolac Tromethamine (Toradol) 10 mg IV NOW STA Stop: 07/26/19 22:03 Last Admin: 07/26/19 22:18 Dose: 10 mg Documented by: [id number] Medical Decision Making Medical Records Attestation: I reviewed the patient's medical records. Home Medications Current Medication List: was personally reviewed by me Laboratory Data Attestation: I reviewed the patient's lab results. Result diagrams: 07/26/19 22:16 07/26/19 22:16 Lab Results 07/26/19 07/26/19 07/26/19 Range/Units 22:16 22:16 22:16 WBC 3.94 L (4.8-10.8) K/uL RBC 4.72 (4.7-6.1) M/uL Hgb 14.4 (14.0-18.0) g/dL Hct 39.7 L (42-52) % MCV 84.1 (80-100) fL MCH 30.5 (25-34) pg MCHC 36.3 H (32-36) g/dL RDW Std Deviation 39.0 (36.4-46.3) fL RDW Coeff of Mounika 12.9 (11.5-14.5) % Plt Count 145 (130-400) K/uL MPV 10.6 H (7.4-10.4) fL Immature Gran % (Auto) 0.3 % Neut % (Auto) 83.9 % Lymph % (Auto) 5.6 % Oceana % (Auto) 8.9 % Eos % (Auto) 1.0 % Baso % (Auto) 0.3 % Immature Gran # (Auto) 0.01 (0.00-0.02) K/uL Neut # (Auto) 3.31 (1.4-6.5) K/uL Lymph # (Auto) 0.22 L (1.2-3.4) K/uL Oceana # (Auto) 0.35 (0.11-0.59) K/uL Eos # (Auto) 0.04 (0-0.5) K/uL Baso # (Auto) 0.01 (0-0.2) K/uL PT 10.9 (9.0-12.0) Seconds INR 1.1 (0.9-1.1) APTT 24.0 (21.0-31.0) Seconds PTT Ratio 0.9 Sodium 137 (136-145) mmol/L Potassium 3.3 L (3.5-5.1) mmol/L Chloride 105 (98-107) mmol/L Carbon Dioxide 25 (21-32) mmol/L Anion Gap 7.0 (3-11) BUN 11 (7-18) mg/dl Creatinine 0.89 (0.6-1.4) mg/dl Est Cr Clr Drug Dosing 118.5 ml/min Est GFR ( Amer) 141.7 Est GFR (Non-Af Amer) 122.2 BUN/Creatinine Ratio 12.7 (10-20) Glucose 86 (70-99) mg/dl Calcium 9.0 (8.5-10.1) mg/dl Total Bilirubin 4.1 H D (0.2-1) mg/dl AST 667 H (15-37) U/L ALT 888 H (12-78) U/L Alkaline Phosphatase 110 (45-117) U/L Total Protein 7.3 (6.4-8.2) gm/dl Albumin 4.2 (3.4-5.0) gm/dl Globulin 3.1 (2.5-4.0) gm/dl Albumin/Globulin Ratio 1.3 (0.9-2) Influenza Type A (PCR) (Neg) Influenza Type B (PCR) (Neg) 07/26/19 Range/Units 22:17 WBC (4.8-10.8) K/uL RBC (4.7-6.1) M/uL Hgb (14.0-18.0) g/dL Hct (42-52) % MCV (80-100) fL MCH (25-34) pg MCHC (32-36) g/dL RDW Std Deviation (36.4-46.3) fL RDW Coeff of Mounika (11.5-14.5) % Plt Count (130-400) K/uL MPV (7.4-10.4) fL Immature Gran % (Auto) % Neut % (Auto) % Lymph % (Auto) % Oceana % (Auto) % Eos % (Auto) % Baso % (Auto) % Immature Gran # (Auto) (0.00-0.02) K/uL Neut # (Auto) (1.4-6.5) K/uL Lymph # (Auto) (1.2-3.4) K/uL Oceana # (Auto) (0.11-0.59) K/uL Eos # (Auto) (0-0.5) K/uL Baso # (Auto) (0-0.2) K/uL PT (9.0-12.0) Seconds INR (0.9-1.1) APTT (21.0-31.0) Seconds PTT Ratio Sodium (136-145) mmol/L Potassium (3.5-5.1) mmol/L Chloride (98-107) mmol/L Carbon Dioxide (21-32) mmol/L Anion Gap (3-11) BUN (7-18) mg/dl Creatinine (0.6-1.4) mg/dl Est Cr Clr Drug Dosing ml/min Est GFR ( Amer) Est GFR (Non-Af Amer) BUN/Creatinine Ratio (10-20) Glucose (70-99) mg/dl Calcium (8.5-10.1) mg/dl Total Bilirubin (0.2-1) mg/dl AST (15-37) U/L ALT (12-78) U/L Alkaline Phosphatase (45-117) U/L Total Protein (6.4-8.2) gm/dl Albumin (3.4-5.0) gm/dl Globulin (2.5-4.0) gm/dl Albumin/Globulin Ratio (0.9-2) Influenza Type A (PCR) Neg for Influ A (Neg) Influenza Type B (PCR) Neg for Influ B (Neg) Imaging Data Attestation: I personally reviewed and interpreted this imaging study as follows: Blood Pressure Blood Pressure Findings: Normal blood pressure MDM Narrative Prior records/ancillary studies reviewed. Triage Nursing notes reviewed. Additional history obtained from family. The patient's history was concerning for fever. Differential diagnosis: Etiologies such as viral syndrome, otitis, pharyngitis, pneumonia, influenza, meningitis, urinary tract infection, sepsis, bacteremia, as well as others were entertained. Physical examination: Patient is alert, interactive and tolerating fluids ER treatment provided: An order was placed for continuous cardiac monitoring. The monitor shows a rate of 60-120 with a sinus rhythm. IV fluids, Toradol On reassessment the patient felt better. Diagnostics interpreted by me: The labs revealed elevated LFTs and T bili, negative flu Blood cultures pending Imaging studies: XR chest 1V portable HISTORY: cough/fever COMPARISON: Chest 07/22/2019. FINDINGS: The lungs are clear. Cardiac silhouette is normal in size. No pleural effusions. No pneumothorax. IMPRESSION: No acute process. ACT 112: Negative or not required by law. Electronically signed by: Eladio Muñoz M.D. 07/26/2019 10:27 PM US GALLBLADDER: Mild thickening of the gallbladder wall is 0.4 cm likely secondary to underdistention. No other finding suggestive of acute cholecystitis. Hepatic steatosis. Normal common bile duct diameter of 0.4 cm. No right kidney hydronephrosis. Radiologist: Darell Maldonado MD Consultation: A consultation was placed with surgery Dr. Roberto and recommends MRCP with me dical admission and antibiotics. I spoke to Dr. Aleman.. The case was discussed and diagnostics were reviewed. The patient was evaluated in the ER for further treatment. This appears to be consistent with elevated LFT with fever and elevated T bilirubin. Patient was given Zosyn and hydrated as above. Medicine and surgery were consulted. Patient will be evaluated for admission. By the evaluation outlined above emergent etiologies such as otitis, pharyngitis, pneumonia, meningitis, urinary tract infection, sepsis, bacteremia, as well as others were deemed relatively unlikely. The pt informed about the findings as listed above. All questions were answered and pleased with the treatment. The chart was completed utilizing [employer] voice recognition software. Grammatical errors, random word insertions, pronoun errors, and incomplete sentences are an occassional consequence of this system due to software limitations, ambient noise, and hardware issues. Any formal questions or concerns about the content, text, or information contained within the body of this dictation should be directly addressed to the physician special education assistant for clarification. Impression & Plan Elevated liver enzymes, Elevated bilirubin, Fever Discharge Plan Visit Data Chief Complaint: Illness Stated Complaint: FEVER ED Provider: Get [facility] ED Midlevel Provider: Yen Donnelly Discharge Problem: Elevated liver enzymes, Elevated bilirubin, Fever Patient Disposition: Being Evaluated by Hospitalist Condition: Good Forms Stand Alone Forms: My [facility] Prescriptions Prescriptions: No Action gemfibrozil 600 mg tablet 600 mg PO BID RF: 0 dextroamphetamine-amphetamine [Adderall] 20 mg tablet 20 mg PO DAILY RF: 0 calcium carbonate [Tums] 200 mg calcium (500 mg) Tablet,Chewable 200 mg PO DIRECTED PRN (Reason: Indigestion) RF: 0 ibuprofen 200 mg Tablet 400 mg PO Q6H PRN (Reason: Fever Or Pain) RF: 0 famotidine [Pepcid] 40 mg tablet 40 mg PO HS Qty: 30 RF: 0 Referrals Referrals: Jess Hernandez [Primary Care Provider] -
[2019-07-26] MEDS ORDERED: SODIUM CHLORIDE 0.9% 1000ML 1,000 ML IV SCH (22:15)
--- NOTE | 2019-07-26 22:28 | XRay Report ---
XR chest 1V portable HISTORY: cough/fever COMPARISON: Chest 07/22/2019. FINDINGS: The lungs are clear. Cardiac silhouette is normal in size. No pleural effusions. No pneumot horax. IMPRESSION: No acute process. ACT 112: Negative or not required by law. Electronically signed by: Eladio Muñoz M.D. 07/26/2019 10:27 PM
[2019-07-26 22:30] LABS: Basophils # (auto) 0.01 K/uL (0-0.2); Basophils % (auto) 0.3 %; Eosinophils # (auto) 0.04 K/uL (0-0.5); Hematocrit (blood only) 39.7 % (42-52); Hemoglobin 14.4 g/dL (14.0-18.0); Immature Granulocytes # (auto) 0.01 K/uL (0.00-0.02); Immature Granulocytes % (auto) 0.3 %; Lymphocytes # (auto) 0.22 K/uL (1.2-3.4); Lymphocytes % (auto) 5.6 %; Mean Corpuscular Hemoglobin 30.5 pg (25-34); Mean Corpuscular Hgb Conc 36.3 g/dL (32-36); Mean Corpuscular Volume 84.1 fL (80-100); Mean Platelet Volume 10.6 fL (7.4-10.4); Monocytes # (auto) 0.35 K/uL (0.11-0.59); Monocytes % (auto) 8.9 %; Neutrophils # (auto) 3.31 K/uL (1.4-6.5); Neutrophils % (auto) 83.9 %; Platelet Count 145 K/uL (130-400); RDW Coefficient of Variation 12.9 % (11.5-14.5); Red Blood Count 4.72 M/uL (4.7-6.1); White Blood Count 3.94 K/uL (4.8-10.8)
[2019-07-26 22:41] LABS: INR 1.1 (0.9-1.1); Partial Thromboplastin Ratio 0.9; Prothrombin Time 10.9 Seconds (9.0-12.0)
[2019-07-26 22:49] LABS: Albumin Level 4.2 gm/dl (3.4-5.0); BUN Creatinine Ratio 12.7 (10-20); Creatinine Clr Calc Pharmacy 118.5 ml/min; Est GFR (African American) 141.7; Est GFR (Non-African American) 122.2; Potassium 3.3 mmol/L (3.5-5.1)
[2019-07-26 22:52] LABS: Albumin Globulin Ratio 1.3 (0.9-2); Bilirubin,Total 4.1 mg/dl (0.2-1); Globulin 3.1 gm/dl (2.5-4.0); Total Protein 7.3 gm/dl (6.4-8.2)
[2019-07-26 23:26] LABS: Influenza A virus by PCR Neg for Influ A (Neg); Influenza B virus by PCR Neg for Influ B (Neg)
[2019-07-27] MEDS ORDERED: PIPERACILLIN/TAZOBACTAM 4.5 GM/120 ML BAG IV ONE (00:25)
[2019-07-27] MEDS ORDERED: PIPERACILL/TAZOBAC CONSULT ACTIVE PRN (00:25)
--- NOTE | 2019-07-27 01:59 | History & Physical Report ---
Date of Service July 27, 2019 Assessment & Plan (1) Cholelithiasis: Jese De Jesus is a 23 year old man with a past medical history of NAFLD, ADHD, and s/p appendectomy in May of 2019 with complication of multiple abscesses that had to be surgically drained TOMPKINS with Hyperbilirubinemia, elevated AST/ALT, intermittent abdominal pain Patient with history of NAFLD, extensive workup outlined in HPI all negative except for Hep A + in the past and hypertriglyceridemia Bilirubin has been elevated in the past 3.0 in October, 4.2 in May, 1.1 on the 4.1 today. Elevated total and direct bilirubin with elevated AST and ALT Abdominal pain has completely resolved, abdominal exam is benign Likely secondary to intrahepatic cholestasis from NAFLD or extrahepatic secondary to bile duct, gall bladder dysfunction Will evaluate with CT abdomen and MRCP, Dr. Roberto from General surgery consulted and Dr. Monsalve from [facility] gastroenterology consulted lipid profile ordered Fevers at home Got one dose of zosyn in ED, will follow up on CT results before deciding whether to discontinue antibiotics Afebrile since arrival History of abscesses Multiple abscesses following removal of appendix 2 months ago CBC negative today Will check in Am as well as immunoglobulins DVT Ppx: Not indicated F/E/N: NPO pending surgery evaluation Dispo: Med/Surg awaiting results of MRCP and CT abdomen pelvis Code: Full (2) Elevated liver enzymes: (3) Elevated bilirubin: (4) Fever: (5) Fatty liver disease, nonalcoholic: (6) S/P appendectomy: (7) Abdominal pain: (8) Intra-abdominal abscess: (9) Cholelithiasis: (10) Epigastric abdominal pain: History of Present Illness Chief Complaint: Abdominal Pain, fevers Primary Care Provider: Jess Hernandez Jese De Jesus is a 23 year old man with a PMH significant for NAFLD, hypertriglyceridemia, ADHD who has had multiple presentations in last few months for abdominal pain. Had appendix out in May 2019 and developed multiple abscesses post op. These were drained. Patient again seen on July 22 and today for abdominal pain, found to have cholelithiasis on CT but not obvious cholecystitis. AST and ALT have been elevated 42 and 106 on the now 667 and 888. Bilirubin has been on the rise as well 1.1 on 07/22 now up to 4.1. Otherwise labs fairly unremarkable, no elevated white count, INR normal. He has had some soft stools lately but no hiren diarrhea and no large increase in frequency, no constipation. Currently not endorsing any abdominal pain at all, says that it comes and goes. Was having subjective fevers earlier in the night but these have since resolved. No other acute concerns. Patient follows with Dr. Jamison for his NAFLD, and is on gemfibrozil for his hypertryglyceridemia which he takes only sporadically per his mother. Has had extensive workup in past, Copper, AFP,FE studies, PT, JENNIFER, ceruloplasmin, [id number], ASMA, LKM, AMA, Hep B, Hep C all negative. Hep A positive in past. Has started to get his Hep B immunizations. Has had long history of abdominal pain and cramping with fatty meals and evidence of stones of previous CT. Allergies Allergy/AdvReac Type Severity Reaction Status Date / Time No Known Allergies Allergy Verified 07/26/19 22:54 Home Medications Home Medications Medication Instructions Recorded Confirmed Type dextroamphetamine-amphetamine 20 20 mg PO DAILY 06/07/19 07/26/19 History mg tablet gemfibrozil 600 mg tablet 600 mg PO BID 06/07/19 07/26/19 History calcium carbonate [Tums] 200 mg PO DIRECTED PRN 07/22/19 07/26/19 History ibuprofen 400 mg PO Q6H PRN 07/22/19 07/26/19 History famotidine [Pepcid] 40 mg PO HS #30 tab 07/23/19 07/26/19 Rx Past Med/Surg History Medical History Fatty liver disease, nonalcoholic Surgical History History of liver biopsy 2014 S/P appendectomy (05/02/19) Laparoscopic Appendectomy Dr. 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 Beliefs That Will Affect Care: None marital status: Single Current Living Situation: Family and Other Current Living Situation Comment: roomates in apt current occupational status: student Other Information That Helps Us Care for You: No Feels Safe at Home: Yes Safety Concerns: Feels Safe At This Time Smoking Status: Never smoker Hx Alcohol Use: No Hx Substance Use: Yes substance use type: former substance user and marijuana Review of Systems Constitutional: + fever, + fatigue and + malaise Eyes: no problem reported Ear, Nose, Mouth, Throat: no problem reported Respiratory: no cough and no dyspnea Cardiovascular: no chest pain and no dyspnea Gastrointestinal: + abdominal pain and + change in stools (Softer); no nausea and no vomiting Physical Exam Physical Exam: Constitutional: Tired looking slightly jaundiced appearing compared to his drivers license picture young man in no apparent distress Eyes: Mildly Icteric sclerae, EOMMI bilaterally Respiratory: Chest expansion equal, no increased work of breathing, breath sounds vesicular in all lung conte Cardiovascular: Heart sounds dual, no murmurs, rubs skips or gallops, regular rate, regular rhythm GI: Abdomen soft/nontender, no masses detected, liver about 10-12 cm by percussion Skin: Slightly icteric, no stigmata of portal hypertension, no other lesions or rashes Results & Data Vital Signs (Past 12 Hours) Vital Signs Temp Pulse Pulse Resp BP BP Pulse Ox 07/27/19 01:33 36.8 C 69 18 101/55 L 94 07/26/19 21:44 37.2 C 106 H 18 115/70 95 Code Status & VTE Plan VTE Prophylaxis Plan VTE Prophylaxis will be ordered: Yes Supervising Physician Co-Signing Physician Notes Attending addendum: I have physically seen this patient, have supervised the medical residents activities, and agree with the H&P unless as otherwise noted. Assessment and Plan: Increasing LFTs/TOMPKINS/NAFLD- Patient presented with intermittent abdominal pain, with significant worsening of transaminases and bilirubin. Abdominal pain has resolved in the ED Keep n.p.o. Order CT of abdomen pelvis this evening. MRCP has been ordered for the a.m. Consult to general surgery Dr. Roberto. Consult to gastroenterology Dr. Monsalve History of multiple abscesses following appendectomy 2 months ago, if CT is suggestive of persistent abscesses, will begin broad-spectrum IV antibiotics. Zofran 4 mg IV every 6 hours as needed Famotidine 20 mg IV every 12 hours. Remainder orders notations as noted. Resident Activity Tracking Resident Involvement: Resident Care Provided Care Provided: Adult Hospital Medicine (1) Abdominal pain Abdominal location: generalized Qualified Code(s): R10.84 - Generalized abdominal pain (2) Cholelithiasis Biliary obstruction: without biliary obstruction Cholecystitis presence: without cholecystitis Cholelithiasis location: gallbladder Qualified Code(s): K80.20 - Calculus of gallbladder without cholecystitis without obstruction (3) Cholelithiasis Biliary obstruction: without biliary obstruction Cholecystitis presence: without cholecystitis Cholelithiasis location: gallbladder Qualified Code(s): K80.20 - Calculus of gallbladder without cholecystitis without obstruction
[2019-07-27 02:20] LABS: Hepatitis B Surface Antigen Neg (Neg)
[2019-07-27 02:31] LABS: Bilirubin Direct 0.9 mg/dl (0-0.2)
[2019-07-27] MEDS ORDERED: CALCIUM CARBONATE 500 MG CHEWABLE TAB PO PRN (02:32)
[2019-07-27] MEDS ORDERED: POLYETHYLENE (MIRALAX) 17 GM PACK PO PRN (02:32)
[2019-07-27] MEDS ORDERED: IBUPROFEN 200 MG TAB PO PRN (02:32)
[2019-07-27 02:49] LABS: Hepatitis C IgG 13Yrs+Old_Rflx Neg (Neg)
[2019-07-27] MEDS: ONDANSETRON INJ 2 MG/ML 2 ML VIAL IV PRN ×2 (06:19→12:35)
[2019-07-27] MEDS: PIPERACILLIN/TAZOBACTAM 3.375 GM in DEXTROSE 5% 100 ML IV SCH ×2 (07:07→13:41)
--- NOTE | 2019-07-27 08:19 | Ultrasound Report ---
ULTRASOUND RIGHT UPPER QUADRANT ABDOMEN CLINICAL HISTORY: Elevated hepatic transaminases. COMPARISON STUDY: Abdominal ultrasound dated 07/25/2019. Abdominal CT dated 07/23/2019 TECHNIQUE: Real-time, grayscale, and color flow sonography of the right upper quadrant of the abdomen was performed. Images are reviewed in the transverse and longitudinal planes. FINDINGS: Liver: The liver is enlarged and demonstrates heterogeneously increased echotexture consistent with h epatic steatosis. Fatty sparing is seen adjacent to gallbladder fossa. There is no intrahepatic bilia ry ductal dilatation. The main portal vein is patent. Gallbladder: The gallbladder is contracted. No shadowing gallstones are clearly identified. There is no gallbladder wall thickening or pericholecystic fluid. A sonographic Billy's sign is reportedly ab sent. The common bile duct measures up to 0.4 cm in diameter. Pancreas: Visualized portions of the pancreatic head and body are normal in appearance. The splenic v ein is patent. Right kidney: Survey images of the right kidney demonstrate normal size and echotexture. There is no hydronephrosis. Ascites: None. IMPRESSION: 1. No acute sonographic abnormality is seen in the right upper quadrant. The gallbladder is contracte d with no shadowing calculi clearly identified. 2. Hepatomegaly and hepatic steatosis. ACT 112: Negative or not required by law. Electronically signed by: Reyes Jacob M.D. 07/27/2019 8:18 AM
--- NOTE | 2019-07-27 08:28 | Magnetic Resonance Report ---
MRCP CLINICAL HISTORY: Elevated hepatic transaminases and bilirubin. COMPARISON STUDY: Abdominal CT performed the same day 07/27/2019. Abdominal ultrasound dated 07/26/2019 . TECHNIQUE: Abdominal MRCP is performed utilizing various T2-weighted sequences in the axial and coron al planes. IV contrast was not administered for this examination. 3-D reformats are created and asses sed. FINDINGS: The gallbladder is partially contracted. Intraluminal gallstones are identified. There is no intra or extrahepatic biliary ductal dilatation. The common bile duct measures up to 4 mm caliber. No intralu arlet filling defects are identified to suggest choledocholithiasis. The pancreatic duct is normal in caliber and difficult to visualize. The liver is enlarged, measuring 18.6 cm in length. Today's CT scan shows severe hepatic steatosis. T he spleen is top normal in size measuring 13.2 cm in length. The unenhanced pancreas, adrenal glands, and kidneys are normal as visualized. There is no bowel obstruction. Moderate fecal retention is see n in the right colon. The abdominal aorta is normal in caliber. No abdominal ascites is seen. There i s no pleural effusion. The bony structures appear intact. IMPRESSION: 1. Cholelithiasis without evidence of acute cholecystitis. 2. Otherwise normal MRCP. 3. Hepatomegaly and hepatic steatosis. Dictated: 07/27/2019 8:10 AM Transcribed: 07/27/2019 8:22 AM Chery [id number] Electronically signed by: Reyes Jacob M.D. 07/27/2019 8:27 AM
[2019-07-27 09:31] LABS: Basophils # (auto) 0.01 K/uL (0-0.2); Basophils % (auto) 0.3 %; Eosinophils # (auto) 0.03 K/uL (0-0.5); Hematocrit (blood only) 39.5 % (42-52); Hemoglobin 14.1 g/dL (14.0-18.0); Immature Granulocytes # (auto) 0.01 K/uL (0.00-0.02); Immature Granulocytes % (auto) 0.3 %; Lymphocytes # (auto) 0.48 K/uL (1.2-3.4); Lymphocytes % (auto) 15.8 %; Mean Corpuscular Hemoglobin 30.6 pg (25-34); Mean Corpuscular Hgb Conc 35.7 g/dL (32-36); Mean Corpuscular Volume 85.7 fL (80-100); Mean Platelet Volume 11.2 fL (7.4-10.4); Monocytes # (auto) 0.21 K/uL (0.11-0.59); Monocytes % (auto) 6.9 %; Neutrophils # (auto) 2.29 K/uL (1.4-6.5); Neutrophils % (auto) 75.7 %; Platelet Count 156 K/uL (130-400); RDW Coefficient of Variation 13.1 % (11.5-14.5); RDW Standard Deviation 40.9 fL (36.4-46.3); Red Blood Count 4.61 M/uL (4.7-6.1); White Blood Count 3.03 K/uL (4.8-10.8)
--- NOTE | 2019-07-27 09:33 | CT Scan Report ---
CT SCAN OF THE ABDOMEN AND PELVIS WITHOUT IV CONTRAST CLINICAL HISTORY: Fever. Elevated hepatic transaminases. COMPARISON STUDY: Abdominal CT dated 07/23/2019. Abdominal ultrasound dated 07/26/2019. TECHNIQUE: CT scan of the abdomen and pelvis is performed from the lung bases to the proximal femora. Images are reviewed in the axial, sagittal, and coronal planes. IV contrast was not administered for this examination as per the referring clinician. Note that the examination was performed in suboptim al fashion without oral and IV contrast. A dose lowering technique was utilized adhering to the princ iplcamacho of [place]. CT DOSE: 306.51 mGy.cm FINDINGS: Lung bases: The heart is normal in size and without pericardial effusion. A 4 mm left lower lobe pulm onary nodule is unchanged, best seen on image #44. This is of doubtful significance in this age group . The long bases are otherwise clear. Liver: The unenhanced liver is enlarged, measuring 20.5 cm in length. The liver demonstrates diffusel y diminished attenuation consistent with severe hepatic steatosis. Fatty sparing is seen adjacent to gallbladder fossa. There is no intrahepatic biliary ductal dilatation. Gallbladder: There are calcified gallstones with no CT evidence of acute cholecystitis. Spleen: The spleen is mildly enlarged measuring 13.6 cm in length. Pancreas: Unremarkable. Adrenal glands: Unremarkable. Kidneys: The unenhanced kidneys are normal in size and without hydronephrosis. There are no renal randall culi identified. There is no evidence of contour deforming renal mass lesion. Abdominal vasculature: The abdominal aorta is normal in course and caliber. Bowel: There is no bowel obstruction. Moderate fecal retention is noted in the colon. The appendix is surgically absent. Peritoneum: There is no intraperitoneal free air or abdominal ascites. There is a fat-containing umbi lical hernia. Lymphadenopathy: None. Pelvic viscera: The bladder is distended otherwise normal in appearance. The prostate and seminal ves icles are normal as visualized. Skeletal structures: No lytic or blastic lesions are seen. There are bilateral pars defects at L5 wit h mild disc space narrowing and minimal anterolisthesis at L5-S1. IMPRESSION: 1. There are no acute infectious or inflammatory findings in the abdomen or pelvis. 2. Cholelithiasis. 3. Hepatomegaly and severe hepatic steatosis. ACT 112: Negative or not required by law. Electronically signed by: Reyes Jacob M.D. 07/27/2019 9:32 AM
[2019-07-27 10:13] LABS: Albumin Globulin Ratio 1.2 (0.9-2); Albumin Level 3.8 gm/dl (3.4-5.0); Bilirubin Direct 0.5 mg/dl (0-0.2); Bilirubin,Total 3.2 mg/dl (0.2-1); Creatinine Clr Calc Pharmacy 121.2 ml/min; Est GFR (Non-African American) 123.4; Globulin 3.1 gm/dl (2.5-4.0); Potassium 3.3 mmol/L (3.5-5.1); Total Protein 6.9 gm/dl (6.4-8.2)
--- NOTE | 2019-07-27 10:25 | Surgery Consultation ---
Date of Consultation July 27, 2019 Assessment & Plan (1) Fever: 23-year-old male with cholelithiasis admitted with generalized illness and significant transaminitis and unconjugated hyperbilirubinemia. His MRCP showed no obstructive pattern and no cholecystitis. Dr. Monsalve from gastroenterology is seen the patient believes this may be viral. We agreed to order a HIDA scan to rule out acute cholecystitis. At this point I would hesitate to perform a cholecystectomy in the face of an acute viral infection. We will keep him n.p.o. until after the HIDA scan, the HIDA scan is negative then he may have a diet. We will continue to follow. No surgical intervention indicated at this time Appreciate medical management of this patient and GI assistance HIDA scan today, preferably with ejection fraction Repeat LFTs tomorrow If HIDA scan cannot be performed today or if is negative, then may have a regular diet. Make n.p.o. after midnight Plan of care discussed with the patient and his mother, as well as GI, all questions answered, patient agrees to proceed with plan of care as stated (2) Fatty liver disease, nonalcoholic: (3) Elevated bilirubin: (4) Elevated liver enzymes: (5) Cholelithiasis: (6) S/P appendectomy: History of Present Illness Attending Physician: Cyrus Dougherty DO History of Present Illness 23-year-old male known to me admitted with illness and elevation in his liver enzymes. I performed an uncomplicated appendectomy on him last year with subsequent intra-abdominal abscess formation requiring percutaneous drainage in [place]. He had been doing well since then but started developing some intermittent abdominal pain which may or may not have been associated with fatty meals. He was seen in the ER earlier in the week and had a CT scan that showed cholelithiasis borderline gallbladder wall thickening a partially decompressed. His pain resolved and he followed up with me in clinic. We ordered an ultrasound which showed biliary sludge and no evidence of cholecystitis. He deferred surgery until later time was going to manage with diet alone. We also had ordered a HIDA scan for him. Yesterday he started having fevers along with generalized ill feeling. He denied any abdominal pain. He had an ultrasound performed which again showed sludge and no evidence of cholecystitis. His bilirubin was 4.1 and mostly unconjugated, and his ALT and AST were significantly elevated. CT scan was performed with no obvious abnormality. He has had a liver biopsy in the past for TOMPKINS. He had an MRCP performed which showed gallstones but no cholecystitis, and no bile duct obstruction. This morning he is having some aching in his legs as well as a generalized ill feeling but continues to deny right upper quadrant or epigastric abdominal pain. Allergies Allergy/AdvReac Type Severity Reaction Status Date / Time No Known Allergies Allergy Verified 07/26/19 22:54 Home Medications Home Medications Medication Instructions Recorded Confirmed Type dextroamphetamine-amphetamine 20 20 mg PO DAILY 06/07/19 07/26/19 History mg tablet gemfibrozil 600 mg tablet 600 mg PO BID 06/07/19 07/26/19 History calcium carbonate [Tums] 200 mg PO DIRECTED PRN 07/22/19 07/26/19 History ibuprofen 400 mg PO Q6H PRN 07/22/19 07/26/19 History famotidine [Pepcid] 40 mg PO HS #30 tab 07/23/19 07/26/19 Rx Patient History Medical History Fatty liver disease, nonalcoholic Surgical History History of liver biopsy 2014 S/P appendectomy (05/02/19) Laparoscopic Appendectomy Dr. Roberto 05/02/19 Family History Father Diabetes Hypertension Grandfather (Paternal) Cancer Grandmother (Paternal) Heart disease Social History Preferred Language: French Communication Ability: Effective District [employer] Required: No Beliefs That Will Affect Care: None marital status: Single Current Living Situation: Family and Other Current Living Situation Comment: roomates in apt current occupational status: student Other Information That Helps Us Care for You: No Feels Safe at Home: Yes Safety Concerns: Feels Safe At This Time Smoking Status: Never smoker Hx Alcohol Use: No Hx Substance Use: Yes substance use type: former substance user and marijuana Review of Systems Review of Systems: All systems reviewed & are unremarkable except as noted in HPI & below Physical Exam Constitutional: WD/WN, vitals as above Eyes: PERRL, conjunctivae normal, anicteric sclerae ENMT: external ear and nose normal, oropharynx normal Neck: trachea midline, no thyromegaly Respiratory: normal respiratory effort, lungs clear to auscultation Cardiovascular: RRR, no murmur, no edema Gastrointestinal (Abdomen): normal bowel sounds, soft, nontender, no hepatosplenomegaly Inspection/Auscultation: + abdominal surgical scar Musculoskeletal: no cyanosis or clubbing, extremities motor strength 5/5 Skin: no rashes, warm and dry Neurologic: PERRL, EOMI, accommodation nl, no face palsy, no dysarthria Psychiatric: A+Ox3, euthymic affect Lymphatic: no cervical or axillary lymphadenopathy Results & Data Vital Signs (Past 12 Hours) Vital Signs Temp Pulse Resp BP Pulse Ox 07/27/19 07:35 36.9 C 89 16 96/58 L 96 07/27/19 04:12 37 C 76 16 104/62 96 07/27/19 01:33 36.8 C 69 18 101/55 L 94 Laboratory Results Laboratory Results - last 24 hr 07/26/19 07/26/19 07/26/19 22:16 22:16 22:16 WBC 3.94 L RBC 4.72 Hgb 14.4 Hct 39.7 L MCV 84.1 MCH 30.5 MCHC 36.3 H RDW Std Deviation 39.0 RDW Coeff of Mounika 12.9 Plt Count 145 MPV 10.6 H Immature Gran % (Auto) 0.3 Neut % (Auto) 83.9 Lymph % (Auto) 5.6 [place] % (Auto) 8.9 Eos % (Auto) 1.0 Baso % (Auto) 0.3 Immature Gran # (Auto) 0.01 Neut # (Auto) 3.31 Lymph # (Auto) 0.22 L [place] # (Auto) 0.35 Eos # (Auto) 0.04 Baso # (Auto) 0.01 PT 10.9 INR 1.1 APTT 24.0 PTT Ratio 0.9 Sodium 137 Potassium 3.3 L Chloride 105 Carbon Dioxide 25 Anion Gap 7.0 BUN 11 Creatinine 0.89 Est Cr Clr Drug Dosing 118.5 Est GFR ( Amer) 141.7 Est GFR (Non-Af Amer) 122.2 BUN/Creatinine Ratio 12.7 Glucose 86 Lactate Calcium 9.0 Total Bilirubin 4.1 H D Direct Bilirubin 0.9 H AST 667 H ALT 888 H Alkaline Phosphatase 110 Total Protein 7.3 Albumin 4.2 Globulin 3.1 Albumin/Globulin Ratio 1.3 Lipase 70 L IgG 967.0 IgA 125.0 IgM 109.0 Hepatitis A IgM Ab Hep Bs Antigen Hep B Core IgM Ab Hepatitis C Antibody Influenza Type A (PCR) Influenza Type B (PCR) 07/26/19 07/27/19 07/27/19 22:17 01:27 01:27 WBC RBC Hgb Hct MCV MCH MCHC RDW Std Deviation RDW Coeff of Mounika Plt Count MPV Immature Gran % (Auto) Neut % (Auto) Lymph % (Auto) [place] % (Auto) Eos % (Auto) Baso % (Auto) Immature Gran # (Auto) Neut # (Auto) Lymph # (Auto) [place] # (Auto) Eos # (Auto) Baso # (Auto) PT INR APTT PTT Ratio Sodium Potassium Chloride Carbon Dioxide Anion Gap BUN Creatinine Est Cr Clr Drug Dosing Est GFR ( Amer) Est GFR (Non-Af Amer) BUN/Creatinine Ratio Glucose Lactate Calcium Total Bilirubin Direct Bilirubin AST ALT Alkaline Phosphatase Total Protein Albumin Globulin Albumin/Globulin Ratio Lipase IgG IgA IgM Hepatitis A IgM Ab Pending Hep Bs Antigen Neg Hep B Core IgM Ab Pending Hepatitis C Antibody Neg Influenza Type A (PCR) Neg for Influ A Influenza Type B (PCR) Neg for Influ B 07/27/19 07/27/19 07/27/19 01:28 08:58 08:58 WBC 3.03 L RBC 4.61 L Hgb 14.1 Hct 39.5 L MCV 85.7 MCH 30.6 MCHC 35.7 RDW Std Deviation 40.9 RDW Coeff of Mounika 13.1 Plt Count 156 MPV 11.2 H Immature Gran % (Auto) 0.3 Neut % (Auto) 75.7 Lymph % (Auto) 15.8 [place] % (Auto) 6.9 Eos % (Auto) 1.0 Baso % (Auto) 0.3 Immature Gran # (Auto) 0.01 Neut # (Auto) 2.29 Lymph # (Auto) 0.48 L [place] # (Auto) 0.21 Eos # (Auto) 0.03 Baso # (Auto) 0.01 PT INR APTT PTT Ratio Sodium 140 Potassium 3.3 L Chloride 107 Carbon Dioxide 26 Anion Gap 7.0 BUN 11 Creatinine 0.87 Est Cr Clr Drug Dosing 121.2 Est GFR ( Amer) 143.0 Est GFR (Non-Af Amer) 123.4 BUN/Creatinine Ratio 13.0 Glucose 77 Lactate 1.0 Calcium 9.0 Total Bilirubin 3.2 H Direct Bilirubin 0.5 H AST 397 H ALT 738 H Alkaline Phosphatase 107 Total Protein 6.9 Albumin 3.8 Globulin 3.1 Albumin/Globulin Ratio 1.2 Lipase IgG IgA IgM Hepatitis A IgM Ab Hep Bs Antigen Hep B Core IgM Ab Hepatitis C Antibody Influenza Type A (PCR) Influenza Type B (PCR) Diagnostic Findings COMPARISON STUDY: Abdominal ultrasound dated 07/25/2019. Abdominal CT dated 07/23/2019 TECHNIQUE: Real-time, grayscale, and color flow sonography of the right upper quadrant of the abdomen was performed. Images are reviewed in the transverse and longitudinal planes. FINDINGS: Liver: The liver is enlarged and demonstrates heterogeneously increased echotexture consistent with hepatic steatosis. Fatty sparing is seen adjacent to gallbladder fossa. There is no intrahepatic biliary ductal dilatation. The main portal vein is patent. Gallbladder: The gallbladder is contracted. No shadowing gallstones are clearly identified. There is no gallbladder wall thickening or pericholecystic fluid. A sonographic Billy's sign is reportedly absent. The common bile duct measures up to 0.4 cm in diameter. Pancreas: Visualized portions of the pancreatic head and body are normal in appearance. The splenic vein is patent. Right kidney: Survey images of the right kidney demonstrate normal size and echotexture. There is no hydronephrosis. Ascites: None. IMPRESSION: 1. No acute sonographic abnormality is seen in the right upper quadrant. The gallbladder is contracted with no shadowing calculi clearly identified. 2. Hepatomegaly and hepatic steatosis. MRCP CLINICAL HISTORY: Elevated hepatic transaminases and bilirubin. COMPARISON STUDY: Abdominal CT performed the same day 07/27/2019. Abdominal ultrasound dated 07/26/2019. TECHNIQUE: Abdominal MRCP is performed utilizing various T2-weighted sequences in the axial and coronal planes. IV contrast was not administered for this examination. 3-D reformats are created and assessed. FINDINGS: The gallbladder is partially contracted. Intraluminal gallstones are identified. There is no intra or extrahepatic biliary ductal dilatation. The common bile duct measures up to 4 mm caliber. No intraluminal filling defects are identified to suggest choledocholithiasis. The pancreatic duct is normal in caliber and difficult to visualize. The liver is enlarged, measuring 18.6 cm in length. Today's CT scan shows severe hepatic steatosis. The spleen is top normal in size measuring 13.2 cm in length. The unenhanced pancreas, adrenal glands, and kidneys are normal as visualized. There is no bowel obstruction. Moderate fecal retention is seen in the right colon. The abdominal aorta is normal in caliber. No abdominal ascites is seen. There is no pleural effusion. The bony structures appear intact. IMPRESSION: 1. Cholelithiasis without evidence of acute cholecystitis. 2. Otherwise normal MRCP. 3. Hepatomegaly and hepatic steatosis. CT SCAN OF THE ABDOMEN AND PELVIS WITHOUT IV CONTRAST CLINICAL HISTORY: Fever. Elevated hepatic transaminases. COMPARISON STUDY: Abdominal CT dated 07/23/2019. Abdominal ultrasound dated 07/26/2019. TECHNIQUE: CT scan of the abdomen and pelvis is performed from the lung bases to the proximal femora. Images are reviewed in the axial, sagittal, and coronal planes. IV contrast was not administered for this examination as per the referring clinician. Note that the examination was performed in suboptimal fashion without oral and IV contrast. A dose lowering technique was utilized adhering to the principles of ALARA. CT DOSE: 306.51 mGy.cm FINDINGS: Lung bases: The heart is normal in size and without pericardial effusion. A 4 mm left lower lobe pulmonary nodule is unchanged, best seen on image #44. This is of doubtful significance in this age group. The long bases are otherwise clear. Liver: The unenhanced liver is enlarged, measuring 20.5 cm in length. The liver demonstrates diffusely diminished attenuation consistent with severe hepatic steatosis. Fatty sparing is seen adjacent to gallbladder fossa. There is no intrahepatic biliary ductal dilatation. Gallbladder: There are calcified gallstones with no CT evidence of acute cholecystitis. Spleen: The spleen is mildly enlarged measuring 13.6 cm in length. Pancreas: Unremarkable. Adrenal glands: Unremarkable. Kidneys: The unenhanced kidneys are normal in size and without hydronephrosis. There are no renal calculi identified. There is no evidence of contour deforming renal mass lesion. Abdominal vasculature: The abdominal aorta is normal in course and caliber. Bowel: There is no bowel obstruction. Moderate fecal retention is noted in the colon. The appendix is surgically absent. Peritoneum: There is no intraperitoneal free air or abdominal ascites. There is a fat-containing umbilical hernia. Lymphadenopathy: None. Pelvic viscera: The bladder is distended otherwise normal in appearance. The prostate and seminal vesicles are normal as visualized. Skeletal structures: No lytic or blastic lesions are seen. There are bilateral pars defects at L5 with mild disc space narrowing and minimal anterolisthesis at L5-S1. IMPRESSION: 1. There are no acute infectious or inflammatory findings in the abdomen or pelvis. 2. Cholelithiasis. 3. Hepatomegaly and severe hepatic steatosis. PG Care Time/CCT Total # of Minutes Spent Total Time Spent with Patient: Total time spent is greater than 50% in coordination of care (as documented) at patient's floor/unit and/or counseling patient: Coding Level of Care Code 98555 Inpt Consult Level 4 Diagnoses Fever R50.9 Fatty liver disease, nonalcoholic K76.0 Elevated bilirubin R17 Elevated liver enzymes R74.8 Cholelithiasis K80.20 Biliary obstruction: without biliary obstruction Cholecystitis presence: without cholecystitis Cholelithiasis location: gallbladder S/P appendectomy Z90.49 (1) Cholelithiasis Biliary obstruction: without biliary obstruction Cholecystitis presence: without cholecystitis Cholelithiasis location: gallbladder Qualified Code(s): K80.20 - Calculus of gallbladder without cholecystitis without obstruction
--- NOTE | 2019-07-27 10:47 | Consultation Report ---
DATE OF CONSULTATION: 07/27/2019 GASTROINTESTINAL CONSULTATION REASON FOR EVALUATION: Abnormal liver tests and fatty liver and gallstones. HISTORY OF PRESENT ILLNESS: The patient is a 23-year-old who is known to have fatty liver for the last 2 years. He has been on gemfibrozil as an outpatient and in May had appendicitis. He had an uncomplicated resection in [place] and then unfortunately developed some multiple abdominal abscesses postoperatively and was seen at [place] and had these drained. He recovered and then on 07/22 and 07/25, he had had 2 episodes of severe epigastric pain lasting about 2 hours, said it was a 20 on a scale of 1-10. There was some nausea, but no vomiting. He had an ultrasound that showed some sludge and MRCP that showed some gallstones, but no common duct stones. His aminotransferases have been elevated. Last night, he developed a fever to 102.4 with body aches and a little bit of a dry cough and scratchy throat, presented to the Emergency Room and was admitted. The patient's aminotransferases have gone up to 600-800 range. Bilirubin also went up to 4.1, most of it being indirect, which is probably related to Gilbert's. He was seen in the past by Dr. Jamison and had multiple blood tests for liver disease that were negative including tests for Giancarlo's disease, hemochromatosis, autoimmune hepatitis, alpha 1 antitrypsin deficiency, hepatitis B and C, all negative. PAST MEDICAL HISTORY: Remarkable for attention deficit disorder. He has had an appendectomy. He has fatty liver. FAMILY HISTORY: Positive for diabetes and hypertension in father. SOCIAL HISTORY: The patient is a student. He in the past used marijuana. Does not smoke, does not drink. REVIEW OF SYSTEMS: Positive for fatigue, fever, body aches, abdominal pain. Remainder is negative. PHYSICAL EXAMINATION: GENERAL: The patient appears in no acute distress. VITAL SIGNS: Normal. He is afebrile. ABDOMEN: Soft. There are no masses, tenderness, or hepatosplenomegaly. Billy sign is negative. SKIN: There are no signs of jaundice. IMPRESSION: The patient is having fever, abdominal pain, which I think may be related to viral illness. He probably has underlying Gilbert's disease. The elevated transaminases may be from the viral infection. The question is what role his gallbladder may be playing, if any. The gallstones may be at this time an incidental finding, but I plan on getting a biliary scan to evaluate that further. We will follow the patient during his hospital stay. KAVON
[2019-07-27] MEDS: gemfibroziL 600 MG TAB PO SCH ×2 (10:54→20:20)
[2019-07-27] MEDS: AMPHETAMINE ASP/SULF/DEXTRAMPH 20 MG TAB PO SCH (10:54)
[2019-07-27] MEDS: POLYETHYLENE (MIRALAX) 17 GM PACK PO SCH (10:54)
--- NOTE | 2019-07-27 18:29 | Hospitalist Progress Note ---
Date of Service July 27, 2019 Assessment & Plan (1) Cholelithiasis: Jese De Jesus is a 23 year old man with a past medical history of NAFLD, ADHD, and s/p appendectomy in May of 2019 with complication of multiple abscesses that had to be surgically drained - gallbladder US, A/P CT scan and MRCP show gallstones without evidence of cholecystitis - WBC not elevated - HIDA scan 07/29/19 - surgery consulted: no planned intervention (2) Elevated liver enzymes: - On 07/26, AST 86, ALT 135. Levels increased dramatically on 07/26: AST 669, ALT 888; downtrended today 07/27: AST 397, ALT 738 - alk phos wnl - INR normal at 1.1 - hepatoceullar pattern present - etiology: Viral (Hep B neg, C neg, Hep A IgM pending) vs. alcoholic (patient denies heavy alcohol consumption) vs. shock liver (unlikely given patient has no evidence of hemodynamic instability) vs. toxin (unlikely given lack of excessive or regular use of tylenol). Autoimmune is a possibility but rare. - GI consulted, appreciate rec (3) Elevated bilirubin: - total bilirubin 3.2, down from 4.1 on 07/26 - direct 0.9 bilirubin 0.5, down from 0.9 on 07/26 - predominantly unconjugated - etiology: underlying Gilbert's vs. reactive to hepatic inflammation vs. multifactorial - has had elevated levels in the past (4) Fever: - resolved - secondary to presumed viral illness or hepatic inflammation - if recurs, avoid Tylenol for anti-pyretic (5) Fatty liver disease, nonalcoholic: - Patient with history of NAFLD, extensive workup as outpatient negative - hx of familial hypertriglyceridemia (6) S/P appendectomy: (7) Abdominal pain: - resolved at present - differential includes gastrointestinal mucosal disease (GERD/PUD), biliary colic, liver capsule pain (from distention) - gallstones visualized on MRCP, although description of pain is not consistent with biliary colic - hepatomegaly noted on CT a/p 07/27 - continue Pepcid 40mg qhs - TUMS prn (8) Intra-abdominal abscess: - post-appendectomy complication - Immunoglobulins normal Diet: Low fat DVT ppx: not indicated, patient is low risk Code: Full Dispo: med/surg (9) Epigastric abdominal pain: (10) Familial hypertriglyceridemia: - patient ordered gemfibrizol, but admits to noncompliance Supervising Physician Co-Signing Physician Notes I personally examined the patient and verified all walls points of history and exam, discussed case, and agree with decision making with Dr Holcomb. Feeling okay now. No further abdominal pain. No fever. Extensive discussion, answered all questions the best my ability and to patient/girlfriend's satisfaction. Probably greater than 30 minutes at the bedsidesurprisingly I noticed this mostly because 24 minutes into our conversation (apparently) I noticed that the girlfriend had her cell phone out recording our conversation only because I readjusted how I was sitting in the room and noticed a timer and a record button on the other side of the patient on the bed and realized it was her phone recording our conversation. I certainly have no problem with patient's or family is recording conversations to be able to recall information/etc., but it was a little off putting that she did not ask/inform me that she would be recording. In the end she recorded for about 29 minutes and 30 seconds give or take. Otherwise patient seems to be doing better. Ventilation Mechanic input greatly appreciated. Vitals noted, in general he is awake and alert pleasant no distress. HEENT normocephalic atraumatic mucous membranes moist. Abdomen is soft nondistended nontender no masses organomegaly. Skin shows no rashes no pallor or icterus. Acute hepatitishepatocellular patternagree with GI that viral seems to be far and away most likely. He has no toxic ingestions of note (he has maybe taken a single Tylenol twice this week, and while he did have an edible marijuana product, it was last week, and so even if it was adulterated it seems unlikely to have been culprit). He has nothing to suggest shock liver. And given his hepatocellular pattern with fairly significantly elevated LFTs it seems that viral, toxic, or shock would be the 3 main ways he would get so high so quicklyand without it being toxic or shock, viral is certainly not only the most likely/common etiology, but also the main etiology not excluded. Agree with evaluation of gallbladder simply because that is a common etiology, but given that his bilirubin is predominantly indirect and he has no elevated alk phos, I doubt this will be the culprit. Certainly it is also possible a mild degree of gallbladder dysfunction could be appearing on HIDA simply due to the hepatitis possibly causing a degree of crossover inflammation of the gallbladderso we will certainly need to interpret the results carefully. Although given that his LFTs are trending down, possibly by the time the HIDA is able to be done this will not be a confounding factor. Continue to follow LFTs every day, it is reassuring that his numbers trended down a good deal from yesterday to today. Otherwise as above. Subjective Abdominal pain has resolved. When it does periodically bother him, it sounds to be localized to the epigastrium. BMs have been normal. Reports consuming marijuana edible 1 week prior to admission. Mother present at bedside. Review of Systems Gastrointestinal: no abdominal pain Physical Exam Constitutional: WD/WN, vitals as above Eyes: PERRL, conjunctivae normal, anicteric sclerae ENMT: external ear and nose normal, oropharynx normal Neck: normal visual inspection and trachea midline Respiratory: normal respiratory effort, lungs clear to auscultation Cardiovascular: RRR, no murmur, no edema Heart Sounds: normal S1 and normal S2 Gastrointestinal (Abdomen): Inspection/Auscultation: abdomen normal to inspection, normal bowel sounds and + abdominal surgical scar (consistent with previous appendectomy); abdomen not distended Percussion/Palpation: + abdomen firm; no guarding Skin: no rashes, warm and dry Psychiatric: A+Ox3, euthymic affect Results & Data Vital Signs (Past 12 Hours) Vital Signs Temp Pulse Resp BP BP Pulse Ox 07/27/19 17:43 37.3 C 07/27/19 15:26 38.1 C H 96 H 18 108/64 98 07/27/19 12:44 37.2 C 07/27/19 12:02 38.0 C H 102 H 18 110/64 98 07/27/19 10:19 37.7 C H 07/27/19 07:35 36.9 C 89 16 96/58 L 96 Resident Activity Tracking Resident Involvement: Resident Care Provided Care Provided: Adult Hospital Medicine (1) Cholelithiasis Biliary obstruction: without biliary obstruction Cholecystitis presence: without cholecystitis Cholelithiasis location: gallbladder Qualified Code(s): K80.20 - Calculus of gallbladder without cholecystitis without obstruction (2) Abdominal pain Abdominal location: generalized Qualified Code(s): R10.84 - Generalized abdominal pain
[2019-07-27] MEDS: FAMOTIDINE 40 MG TABLET PO SCH (20:20)
--- NOTE | 2019-07-28 04:19 | Billing Data ---
Date of Service July 28, 2019 Coding Level of Care Code 99964 Initial Inpt Care Lvl 3
[2019-07-28 07:41] LABS: Basophils # (auto) 0.02 K/uL (0-0.2); Basophils % (auto) 0.6 %; Eosinophils # (auto) 0.03 K/uL (0-0.5); Hematocrit (blood only) 38.2 % (42-52); Hemoglobin 13.9 g/dL (14.0-18.0); Lymphocytes # (auto) 1.05 K/uL (1.2-3.4); Lymphocytes % (auto) 33.9 %; Mean Corpuscular Hemoglobin 30.7 pg (25-34); Mean Corpuscular Hgb Conc 36.4 g/dL (32-36); Mean Corpuscular Volume 84.3 fL (80-100); Mean Platelet Volume 10.5 fL (7.4-10.4); Monocytes # (auto) 0.41 K/uL (0.11-0.59); Monocytes % (auto) 13.2 %; Neutrophils # (auto) 1.59 K/uL (1.4-6.5); Neutrophils % (auto) 51.3 %; Platelet Count 138 K/uL (130-400); RDW Coefficient of Variation 12.6 % (11.5-14.5); RDW Standard Deviation 38.3 fL (36.4-46.3); Red Blood Count 4.53 M/uL (4.7-6.1)
[2019-07-28 07:58] LABS: Prothrombin Time 10.7 Seconds (9.0-12.0)
[2019-07-28 08:17] LABS: Albumin Level 3.8 gm/dl (3.4-5.0); BUN Creatinine Ratio 12.1 (10-20); Bilirubin Direct 0.5 mg/dl (0-0.2); Calcium 8.8 mg/dl (8.5-10.1); Creatinine Clr Calc Pharmacy 113.4 ml/min; Est GFR (African American) 135.5; Est GFR (Non-African American) 116.9; Potassium 3.4 mmol/L (3.5-5.1)
[2019-07-28 08:37] LABS: Albumin Globulin Ratio 1.2 (0.9-2); Bilirubin,Total 2.1 mg/dl (0.2-1); Globulin 3.2 gm/dl (2.5-4.0)
[2019-07-28] MEDS: POLYETHYLENE (MIRALAX) 17 GM PACK PO SCH (08:54)
[2019-07-28] MEDS: gemfibroziL 600 MG TAB PO SCH ×2 (08:54→21:13)
[2019-07-28] MEDS: AMPHETAMINE ASP/SULF/DEXTRAMPH 20 MG TAB PO SCH (08:54)
--- NOTE | 2019-07-28 09:18 | Surgery Progress Note ---
Date of Service July 28, 2019 Assessment & Plan (1) Cholelithiasis: tolerating diet LFTs continue to improve HIDA pending doubt cholelithiasis is etiology, no surgery planned at this time seen with Dr. Roberto Subjective feeling better, eating pancakes for breakfast Physical Exam Gastrointestinal (Abdomen): Inspection/Auscultation: abdomen normal to inspection Results & Data Vital Signs (Past 12 Hours) Vital Signs Temp Pulse Resp BP Pulse Ox 07/28/19 07:07 37.0 C 82 18 115/71 97 07/27/19 22:24 37.7 C H 92 H 15 115/68 95 PG Care Time/CCT Total # of Minutes Spent Total Time Spent with Patient: Total time spent is greater than 50% in coordination of care (as documented) at patient's floor/unit and/or counseling patient: Coding Level of Care Code 44782 Subseq Hosp Care Lvl 1 Diagnoses Cholelithiasis K80.20 Biliary obstruction: without biliary obstruction Cholecystitis presence: without cholecystitis Cholelithiasis location: gallbladder (1) Cholelithiasis Biliary obstruction: without biliary obstruction Cholecystitis presence: without cholecystitis Cholelithiasis location: gallbladder Qualified Code(s): K80.20 - Calculus of gallbladder without cholecystitis without obstruction
[2019-07-28 10:55] LABS: Hepatitis A Antibody IgM NON-REACTIVE (NON-REACTIVE); Hepatitis B Core Antibody IgM NON-REACTIVE (NON-REACTIVE)
--- NOTE | 2019-07-28 14:00 | Progress Note ---
DATE: 07/28/2019 The patient is feeling much better. He is not having any abdominal pain. He is afebrile and eating better. His blood pressure on exam is 115/71, pulse 82, temperature is 37. Room air saturation 97%. His liver profile is also improving. His bilirubin is down to 2.1 with 0.5 direct, so that is probably consistent with Gilbert's. The AST and ALT are both also trending down and probably a result of a systemic viral infection that causes fever and body aches. White count is 3.1 and his blood cultures so far are negative. IMPRESSION: The patient had abdominal pain. It is unclear if this is part of a viral syndrome, but most likely he is scheduled for a biliary scan with ejection fraction tomorrow, if that is negative, I think we can just treat him symptomatically as he continues to improve without surgical intervention.
--- NOTE | 2019-07-28 15:14 | Hospitalist Progress Note ---
Date of Service July 28, 2019 Assessment & Plan (1) Elevated liver enzymes: Jese De Jesus is a 23 year old man with a past medical history of NAFLD secondary to hypertriglyceridemia here with elevated transaminases and unconjugated bilirubinemia. - On 07/25: AST 86, ALT 135. Levels increased dramatically on 07/26: AST 669, ALT 888; downtrended on 07/27: AST 397, ALT 738. Today (07/18) with further improvement: AST 234, ALT 545. - alk phos wnl - INR normal at 1, suggesting preserved liver function - hepatoceullar pattern present - the differential at this point includes the following: Viral vs. alcoholic vs. shock liver vs. toxin ingestion. - Viral hepatitis is leading etiology given illness course (Hep B neg, C neg, Hep A IgM pending); most likely pathogen thought to be to CMV family; anticipate continued improvement in transaminase levels as viral course progresses - patient denies alcohol consumption, making alcohol origin highly unlikely - shock liver is unlikely given patient has no evidence of hemodynamic instability throughout hospital stay - toxin ingestion also unlikely given lack of excessive or regular use of tylenol (patient did some edible marijuana several days prior to admission) - Autoimmune remains to be a rare possibility (patient without personal history of other autoimmune diseases). - GI consulted, appreciate rec (2) Cholelithiasis: - gallbladder US, A/P CT scan and MRCP show gallstones without evidence of cholecystitis - WBC not elevated - unlikely to be source of patient's intermittent, epigastric discomfort - HIDA scan 07/29/19 - surgery consulted: no planned intervention (3) Elevated bilirubin: - total bilirubin 2.1 today, down from 4.1 07/26 - direct bilirubin 0.5, down from 0.9 on 07/26 - predominantly unconjugated - etiology: underlying Gilbert's vs. reactive to hepatic inflammation vs. multifactorial - has had elevated levels in the past (4) Fever: - resolved - secondary to presumed viral illness or hepatic inflammation - if recurs, avoid Tylenol for anti-pyretic in the setting of elevated transaminases (5) Fatty liver disease, nonalcoholic: - Patient with history of NAFLD, extensive workup as outpatient negative - hx of familial hypertriglyceridemia - patient believes his last TG level was near 1000 - patient reports noncompliance with Gemfibrozil; importance of taking twice daily was reinforced today (6) Abdominal pain: - resolved at present - most likely cause includes primary gastrointestinal mucosal disease (GERD/PUD) or mucosal irritation secondary to hepatic inflammation, the latter of which is felt to be more likely given clinical picture - biliary colic is also plausible etiology, as gallstones were visualized on MRCP, although description of pain is not consistent with biliary colic - other possible etiology includes pain related to liver capsule distention, as hepatomegaly was noted on CT of abdomen/pelvis 07/27, although patient is not tender to palpation in RUQ on exam - continue Pepcid 40mg qhs - TUMS prn (7) Intra-abdominal abscess: - post-appendectomy complication - Immunoglobulins normal (8) Familial hypertriglyceridemia: - patient ordered gemfibrizol, but admits to noncompliance (9) S/P appendectomy: -appendectomy 05/2019. was complicated by post-operative intra-abdominal abscess formation Diet: Low fat DVT ppx: not indicated, patient is low risk Code: Full Dispo: med/surg Supervising Physician Co-Signing Physician Notes Feeling okay. No further abdominal pain. Patient's mother present. Updated patient and mother to the best of my ability and answered all questions to the best of my ability and to their satisfaction. Mostly it was essentially a reiteration of yesterday's discussions. They expressed good understanding. Uncertain amount of time in the room, but likely 30 minutes. He did note earlier in the week what he described as "delayed sensation"describing it as he would touch something and then feel it on a slight time delay. This is totally gone now. Vitals noted, in general he is awake and alert pleasant no distress. HEENT normocephalic atraumatic mucous membranes moist. Skin shows no rashes no pallor or icterus. CN2-12 grossly intact. He shows absolutely no motor or sensory deficits bilateral upper extremities; to light touch and cold he is intact. Again however he notes the sensation he is describing has been resolved for several days. Acute hepatitishepatocellular patternagree with GI that viral seems to be far and away most likely. HIDA has been ordered, and because biliary disease is very common, it is reasonable to proceed with this. Would caution interpretation with the fact that sometimes whenever the liver is quite inflamed the gallbladder could potentially be a little bit swollen and is functional because of this, and if the HIDA only shows a mild degree of dysfunction it migh t be reasonable to simply watch and wait on a low-fat diet with ongoing close outpatient follow-up. This of course, would be different, if it shows significant dysfunction. He is showing good improvement, anticipate ongoing improvement in his LFTs, likely home tomorrow pending results of the HIDA scan. Subjective No acute events overnight. Eating well. Denying abdominal pain. Mother present at bedside. Review of Systems Review of Systems: All systems reviewed & are unremarkable except as noted in HPI & below Ear, Nose, Mouth, Throat: + nasal congestion Physical Exam Constitutional: WD/WN, vitals as above Eyes: PERRL, conjunctivae normal, anicteric sclerae ENMT: external ear and nose normal, oropharynx normal Neck: normal visual inspection and trachea midline Respiratory: normal respiratory effort, lungs clear to auscultation Cardiovascular: RRR, no murmur, no edema Heart Sounds: normal S1 and normal S2 Gastrointestinal (Abdomen): Inspection/Auscultation: abdomen normal to inspection, normal bowel sounds and + abdominal surgical scar (consistent with previous appendectomy); abdomen not distended Percussion/Palpation: + abdomen firm; no guarding Skin: no rashes, warm and dry Psychiatric: A+Ox3, euthymic affect Results & Data Vital Signs (Past 12 Hours) Vital Signs Temp Pulse Resp BP Pulse Ox 07/28/19 07:07 37.0 C 82 18 115/71 97 Resident Activity Tracking Resident Involvement: Resident Care Provided Care Provided: Adult Hospital Medicine (1) Abdominal pain Abdominal location: generalized Qualified Code(s): R10.84 - Generalized abdominal pain (2) Cholelithiasis Biliary obstruction: without biliary obstruction Cholecystitis presence: without cholecystitis Cholelithiasis location: gallbladder Qualified Code(s): K80.20 - Calculus of gallbladder without cholecystitis without obstruction
--- NOTE | 2019-07-28 16:53 | Billing Data ---
Date of Service July 28, 2019 Coding Level of Care Code 75094 Subseq Hosp Care Lvl 3
[2019-07-28] MEDS: FAMOTIDINE 40 MG TABLET PO SCH (21:13)
[2019-07-29 06:22] LABS: Prothrombin Time 10.3 Seconds (9.0-12.0)
[2019-07-29 06:37] LABS: Albumin Level 4.1 gm/dl (3.4-5.0); BUN Creatinine Ratio 9.9 (10-20); Bilirubin Direct 0.5 mg/dl (0-0.2); Calcium 9.2 mg/dl (8.5-10.1); Creatinine Clr Calc Pharmacy 125.5 ml/min; Est GFR (African American) 145.1; Est GFR (Non-African American) 125.2; Potassium 3.8 mmol/L (3.5-5.1)
[2019-07-29 06:39] LABS: Albumin Globulin Ratio 1.1 (0.9-2); Bilirubin,Total 1.9 mg/dl (0.2-1); Globulin 3.6 gm/dl (2.5-4.0); Total Protein 7.7 gm/dl (6.4-8.2)
[2019-07-29] MEDS ORDERED: SINCALIDE 1.3 MCG in 0.9 % SODIUM CHLORIDE 100 ML IV SCH (10:15)
--- NOTE | 2019-07-29 11:31 | Nuclear Medicine Report ---
NM hepatobiliary EF CLINICAL HISTORY: gallstones, abdominal pain. COMPARISON STUDY: CT of the abdomen and pelvis and MRCP July 27, 2019. TECHNIQUE: 5.5 mCi of technetium 99m Choletec was injected IV at 9:15 AM on July 29, 2019. Imaging of the abdomen was carried out for 60 minutes in the anterior projection. At this time, 1.3 mcg of s incalide was injected IV as per protocol imaging was carried out for an additional 45 minutes. FINDINGS: Hepatic uptake of radiotracer is prompt and homogeneous. Activity is first identified withi n the gallbladder at 60 minutes which is at the upper limits of normal. Activity within the common bi le duct and the small bowel is noted at 10 minutes. Gallbladder ejection fraction was estimated at 56 %. Normal is greater than 30-35%. IMPRESSION: 1. No evidence for acute cholecystitis. 2. Visualization of gallbladder activity at 60 minutes which is at the upper limits of normal. 3. Normal gallbladder ejection fraction of 56%. ACT 112: Negative or not required by law. Electronically signed by: Jose Cruz M.D. 07/29/2019 11:30 AM
[2019-07-29] MEDS: gemfibroziL 600 MG TAB PO SCH (11:47)
[2019-07-29] MEDS: AMPHETAMINE ASP/SULF/DEXTRAMPH 20 MG TAB PO SCH (11:47)
[2019-07-29] MEDS: POLYETHYLENE (MIRALAX) 17 GM PACK PO SCH (11:48)
--- NOTE | 2019-07-29 12:17 | Surgery Progress Note ---
Date of Service July 29, 2019 Assessment & Plan (1) Elevated bilirubin: 23-year-old male admitted with likely viral illness causing a primary hepatitis. There is no evidence that his gallbladder contributed to this episode. I advised him that there is no indication for cholecystectomy at this time, and we would not want to perform one while he is recovering from this illness. In the future he should pay attention to his symptoms and if he is having postprandial pain especially with fatty meals we can consider cholecystectomy. However this entire episode may have been related to the viral illness and not to his gallbladder. No surgical intervention indicated at this time Disposition per primary service He may follow-up as needed in the general surgery clinic if he would like to discuss cholecystectomy in the future I recommend he keep a food journal and see if he has any postprandial discomfort or pain Surgery will sign off, call with questions or concerns (2) Elevated liver enzymes: Subjective 23-year-old male admitted with generalized illness with indirect hyperbilirubinemia and transaminitis, as well as a history of possible gallstones. He is feeling better though he has a cough now. Denies any abdominal pain. He did have a HIDA scan this morning which showed filling of the gallbladder with no evidence of acute cholecystitis. He also had an ejection fraction performed which showed ejection fraction of 56%. He had no pain during the exam. His LFTs are downtrending. Physical Exam Constitutional: WD/WN, vitals as above Gastrointestinal (Abdomen): normal bowel sounds, soft, nontender, no hepatosplenomegaly Results & Data Vital Signs (Past 12 Hours) Vital Signs Temp Pulse Resp BP BP Pulse Ox 07/29/19 07:32 36.9 C 74 16 96/56 L 98 07/29/19 00:39 37.2 C 81 17 94/55 L 96 Laboratory Results Laboratory Results - last 24 hr 07/29/19 07/29/19 05:27 05:27 PT 10.3 INR 1.0 Sodium 139 Potassium 3.8 Chloride 106 Carbon Dioxide 27 Anion Gap 6.0 BUN 8 Creatinine 0.84 Est Cr Clr Drug Dosing 125.5 Est GFR ( Amer) 145.1 Est GFR (Non-Af Amer) 125.2 BUN/Creatinine Ratio 9.9 L Glucose 98 Calcium 9.2 Total Bilirubin 1.9 H Direct Bilirubin 0.5 H AST 174 H ALT 497 H Alkaline Phosphatase 105 Total Protein 7.7 Albumin 4.1 Globulin 3.6 Albumin/Globulin Ratio 1.1 Diagnostic Findings NM hepatobiliary EF CLINICAL HISTORY: gallstones, abdominal pain. COMPARISON STUDY: CT of the abdomen and pelvis and MRCP July 27, 2019. TECHNIQUE: 5.5 mCi of technetium 99m Choletec was injected IV at 9:15 AM on July 29, 2019. Imaging of the abdomen was carried out for 60 minutes in the anterior projection. At this time, 1.3 mcg of sincalide was injected IV as per protocol imaging was carried out for an additional 45 minutes. FINDINGS: Hepatic uptake of radiotracer is prompt and homogeneous. Activity is first identified within the gallbladder at 60 minutes which is at the upper limits of normal. Activity within the common bile duct and the small bowel is noted at 10 minutes. Gallbladder ejection fraction was estimated at 56%. Normal is greater than 30-35%. IMPRESSION: 1. No evidence for acute cholecystitis. 2. Visualization of gallbladder activity at 60 minutes which is at the upper limits of normal. 3. Normal gallbladder ejection fraction of 56%. PG Care Time/CCT Total # of Minutes Spent Total Time Spent with Patient: Total time spent is greater than 50% in coordination of care (as documented) at patient's floor/unit and/or counseling patient: Coding Level of Care Code 37064 Subseq Hosp Care Lvl 2 Diagnoses Elevated bilirubin R17 Elevated liver enzymes R74.8
--- NOTE | 2019-07-29 15:35 | Progress Note ---
DATE: 07/29/2019 REASON FOR EVALUATION: Abnormal liver tests. HISTORY: The patient today is feeling better. He does not have a fever. His appetite has returned. His vital signs are normal. His biliary scan earlier today returned normal with an ejection fraction of 56%, indicating a normal gallbladder function. His liver tests are continuing to improve with his total bilirubin down to 1.9, direct bilirubin 0.5, AST 174, ALT 497, alkaline phosphatase is 105. The patient is eating normally. His abdomen is nontender. IMPRESSION: The patient is recovering well. I suspect that he has had a viral infection that caused his fever and body aches and elevated aminotransferases. I think the bilirubin elevation is incidental and due to a Gilbert's condition, which has no clinical significance. I do not think he has any operable gallbladder or liver issues at this time. I would recommend that the patient continue to recover from his infection and follow up as an outpatient next month with Dr. Jamison as previously scheduled.
--- NOTE | 2019-07-29 20:02 | Discharge Summary ---
Date of Service July 29, 2019 Admission HPI Per Admitting Provider Jese De Jesus is a 23 year old man with a PMH significant for NAFLD, hypertriglyceridemia, ADHD who has had multiple presentations in last few months for abdominal pain. Had appendix out in May 2019 and developed multiple abscesses post op. These were drained. Patient again seen on July 22 and today for abdominal pain, found to have cholelithiasis on CT but not obvious cholecystitis. AST and ALT have been elevated 42 and 106 on the now 667 and 888. Bilirubin has been on the rise as well 1.1 on 07/22 now up to 4.1. Otherwise labs fairly unremarkable, no elevated white count, INR normal. He has had some soft stools lately but no hiren diarrhea and no large increase in frequency, no constipation. Currently not endorsing any abdominal pain at all, says that it comes and goes. Was having subjective fevers earlier in the night but these have since resolved. No other acute concerns. Patient follows with Dr. Jamison for his NAFLD, and is on gemfibrozil for his hypertryglyceridemia which he takes only sporadically per his mother. Has had extensive workup in past, [place], AFP,FE studies, PT, JENNIFER, ceruloplasmin, [id number], ASMA, LKM, AMA, Hep B, Hep C all negative. Hep A positive i n past. Has started to get his Hep B immunizations. Has had long history of abdominal pain and cramping with fatty meals and evidence of stones of previous CT. Admission Exam Per Admitting Provider Constitutional: Tired looking slightly jaundiced appearing compared to his drivers license picture young man in no apparent distress Eyes: Mildly Icteric sclerae, EOMMI bilaterally Respiratory: Chest expansion equal, no increased work of breathing, breath sounds vesicular in all lung conte Cardiovascular: Heart sounds dual, no murmurs, rubs skips or gallops, regular rate, regular rhythm GI: Abdomen soft/nontender, no masses detected, liver about 10-12 cm by percussion Skin: Slightly icteric, no stigmata of portal hypertension, no other lesions or rashes Principal Diagnosis Elevated LFT/s Cholelithiasis Elevated Bilirubin Discharge Exam Constitutional WD/WN, vitals as above Eyes PERRL, conjunctivae normal, anicteric sclerae ENMT external ear and nose normal, oropharynx normal Neck trachea midline, no thyromegaly Respiratory normal respiratory effort, lungs clear to auscultation Cardiovascular RRR, no murmur, no edema Gastrointestinal (Abdomen) normal bowel sounds, soft, nontender, no hepatosplenomegaly Musculoskeletal Head/Neck/Chest: normocephalic and head atraumatic Skin no rashes, warm and dry Neurologic CN's II-XI intact bilaterally Psychiatric A+Ox3, euthymic affect Discharge Data Allergies Allergy/AdvReac Type Severity Reaction Status Date / Time No Known Allergies Allergy Verified 07/26/19 22:54 Consultations 07/27/19 00:27 ED Decision to Admit Stat 07/27/19 01:17 ED Decision to Admit Stat 07/27/19 02:32 Consult Gastroenterology Routine Consult General Surgery Routine 07/28/19 18:00 Consult [facility] medical lab specialist Routine 07/29/19 15:00 Consult Case Management - Discharge Planning Stat Ordered Studies 07/26/19 23:21 US gallbladder Stat 07/27/19 00:25 MR MRCP Stat 07/27/19 00:59 CT abd pelvis wo con Urgent Hospital Course (1) Elevated liver enzymes: Jese De Jesus is a 23 year old man with a past medical history of NAFLD secondary to hypertriglyceridemia here with elevated transaminases and unconjugated bilirubinemia. - On 07/25: AST 86, ALT 135. Levels increased dramatically on 07/26: AST 669, ALT 888; downtrended on 07/27: AST 397, ALT 738. (07/28) further improvement: AST 234, ALT 545. (07/29) continued improvement: AST 174, ALT 497. - alk phos wnl - INR normal at 1, suggesting preserved liver function - hepatoceullar pattern present - the differential included the following: Viral vs. alcoholic vs. shock liver vs. toxin ingestion. - Viral hepatitis is leading etiology given illness course (Hep B neg, C neg, He p A IgM pending); most likely pathogen thought to be to CMV family; anticipate continued improvement in transaminase levels as viral course progresses - patient denies alcohol consumption, making alcohol origin highly unlikely - shock liver is unlikely given patient has no evidence of hemodynamic instability throughout hospital stay - toxin ingestion also unlikely given lack of excessive or regular use of tylenol (patient did some edible marijuana several days prior to admission) - Autoimmune remains to be a rare possibility (patient without personal history of other autoimmune diseases). - Follow up LFT's prior to visit with Dr. Hernandez (2) Cholelithiasis: - gallbladder US, A/P CT scan and MRCP show gallstones without evidence of cholecystitis - WBC not elevated - unlikely to be source of patient's intermittent, epigastric discomfort - HIDA scan 07/29/19 IMPRESSION: 1. No evidence for acute cholecystitis. 2. Visualization of gallbladder activity at 60 minutes which is at the upper limits of normal. 3. Normal gallbladder ejection fraction of 56%. - surgery will follow up outpatient in August (3) Elevated bilirubin: - total bilirubin 1.9 07/29 down from 2.1 07/28, down from 4.1 07/26 - direct bilirubin 0.5, down from 0.9 on 07/26 - predominantly unconjugated - etiology: underlying Gilbert's vs. reactive to hepatic inflammation vs. multifactorial - has had elevated levels in the past (4) Fever: - resolved - secondary to presumed viral illness or hepatic inflammation (5) Fatty liver disease, nonalcoholic: - Patient with history of NAFLD, extensive workup as outpatient negative - hx of familial hypertriglyceridemia - patient believes his last TG level was near 1000 - patient reports noncompliance with Gemfibrozil; importance of taking twice daily was reinforced today (6) Abdominal pain: - resolved at present - most likely cause includes primary gastrointestinal mucosal disease (GERD/PUD) or mucosal irritation secondary to hepatic inflammation, the latter of which is felt to be more likely given clinical picture - biliary colic is also plausible etiology, as gallstones were visualized on MRCP, although description of pain is not consistent with biliary colic - other possible etiology includes pain related to liver capsule distention, as hepatomegaly was noted on CT of abdomen/pelvis 07/27, although patient is not tender to palpation in RUQ on exam (7) Intra-abdominal abscess: - post-appendectomy complication - Immunoglobulins normal (8) Familial hypertriglyceridemia: - patient ordered gemfibrizol, but admits to noncompliance (9) S/P appendectomy: -appendectomy 05/2019. was complicated by post-operative intra-abdominal abscess formation Total Time Total Time Spent Total Time Spent (In Minutes): Discharge Plan Discharge Items Patient Disposition: Home - Self-Care Reason For Visit: ABDOMINAL PAIN, HX OF FATTY LIVER Discharge Diagnosis: Elevated Liver Enzymes Condition on Discharge: Good Activity: Resume your previous activity Non-emergency contact: Primary Care Provider and Business Performance Analyst Call non-emergency contact if: your temperature is above 101 Follow-up/Referrals: Jess Hernandez [Primary Care Provider] - 08/02/19 1:30 pm (Please, follow up with Dr. Hernandez on MondayAugust 02 at 1:30 pm. *If you need to change this appointment, call the office at [phone].) Diet: Low Fat Addtl Attending Provider Instructions: You were hospitalized at [facility] for evaluation of abdominal discomfort. On admission, your liver enzymes were elevated. This is thought to be due to a viral inflammation of the liver. Over the course of your hospital stay, your body's own immune system cleared the viral infection, and your liver enzymes improved. You may have been at an increased risk for a viral inflammation of your liver due to your history of underlying fatty-liver disease. Your bilirubin level was also elevated during your hospital stay, which is likely related to the inflammatory state of your liver. Your bilirubin level improved along with your liver enzymes. It is possible that you have an underlying condition known as "Gilbert's syndrome," which can result in elevations in bilirubin when your body is under stress (ie in the setting of a viral infection). There is no specific treatment for Gilbert's syndrome, and the associated elevations in bilirubin are benign, or unharmful. As for your fatty liver disease, please take your Gemfibrozil as directed, ie twice daily. You told us that you had difficulty with remembering to take both doses --> consider setting an alarm on your cell phone to help you remember. We recommend a healthy, low fat diet in the setting if your fatty liver disease. Gallstone were visualized on imaging of your abdomen, although there is no evidence of inflammation or infection of the gallbladder from the stones. So long as your gallstones are not causing you abdominal pain, there is no indication to surgically remove them. The gallstones are unrelated to your liver inflammation. Please follow up with your Primary care doctor 08/06/2019, in addition to Dr. Jamison from Gastroenterology. Pending Studies at Discharge: Yes Studies:: blood cultures - negative at 48 hours Stand-Alone Forms: My [facility], Smoking Cessation Medications and DC Order Prescriptions: Continued gemfibrozil 600 mg tablet 600 mg PO BID RF: 0 dextroamphetamine-amphetamine [Adderall] 20 mg tablet 20 mg PO DAILY RF: 0 calcium carbonate [Tums] 200 mg calcium (500 mg) Tablet,Chewable 200 mg PO DIRECTED PRN (Reason: Indigestion) RF: 0 ibuprofen 200 mg Tablet 400 mg PO Q6H PRN (Reason: Fever Or Pain) RF: 0 famotidine [Pepcid] 40 mg tablet 40 mg PO HS Qty: 30 RF: 0 Discharge Orders: Discharge Order (Routine); Ordered 07/29/19 Ordered By: Mani Humphrey Admission Data Admit Date/Time: 07/27/19 01:43 Attending Provider: Cyrus Dougherty Admit Provider: Tab Barboza Primary Care Provider: Jess Hernandez Other Providers: Andrew Sr ; Abrahan Monsalve ; Ifeanyi Roberto Other Interventions: Discharge Summary Assessment (RN) Last Done: 07/29/19 15:13 DC Date/Time DO NOT enter until pt leaves facility: 07/29/19 15:40 Supervising Physician Co-Signing Physician Notes I saw the patient with the resident and confirmed walls portions of the history and exam. Mother was present as well. I agree with the impression and plan as outlined above Upon exam, he is afebrile. Appears well. Tolerating diet. ABD is soft and non tedner upon my exam. LFTs downtrending. HIDA unremarkable. Reviewed follow up 1) LFTs in one week 2) PCP appointment in 1 week 3) GI appointment in late Aug, unless clinical condition or LFTs warrant sooner appointment. 4) No ETOH; no Tylenol; sp supplements. 5) Low fat diet reasonable in setting of elevated TGs and NAFLD, and perhaps even for his known gallstones. Discussed s/s of acute cholecystitis. 6) Is traveling to [place] later this week for film festival. This seems reasonable, keeping the above recommendations in mind. Resident Activity Tracking Resident Involvement: Resident Care Provided Care Provided: Adult [facility]
== END 2019-07-29 15:40 | disposition home or self-care (01) | DRG 443 ==
LOC: ED 21:43 → SUATTDRO 07-27 01:43 → 2N 07-27 01:43